=== PATIENT | female | born 1965 | race American Indian/Alaskan Native ===

== ENCOUNTER 2017-09-26 17:21 | Emergency (ER) | payer OTHER ==
--- NOTE | 2017-09-27 04:08 | Emergency Department Report ---
ED General Adult HPI - General Chief complaint: Skin Rash Stated complaint: RASH Time Seen by Provider: 09/27/17 02:49 Source: patient Mode of arrival: Ambulatory Limitations: No Limitations - History of Present Illness Initial comments: Patient is a 52-year-old femalePast medical history who presents with right eye pain and rash. Patient states her right eye pains going on for last 2 days she noticed some discharge coming from her eye she has no blurry vision but she has redness coming from her eye. Patient also has a rash on the left side of her neck gets itchy nothing makes it worse scratching makes the itching better. She states that she recently has been wearing some new clothes however she states that she's never had prior psych this before. Patient has no nausea no vomiting no fever no chills no chest pain no shortness of breath. - Related Data Previous Rx's Medication Instructions Recorded Last Taken Type Erythromycin [Erythromycin Ophth 10 applic OP Q4H #1 tube 09/27/17 Unknown Rx Oint] hydrOXYzine HCL [Atarax] 25 mg PO Q6HR PRN #30 tablet 09/27/17 Unknown Rx Allergies Allergy/AdvReac Type Severity Reaction Status Date / Time No Known Allergies Allergy Unverified 09/26/17 17:27 ED Review of Systems ROS: Stated complaint: RASH Other details as noted in HPI Constitutional: denies: chills, fever Eyes: eye pain. denies: eye discharge, vision change ENT: denies: ear pain, throat pain Respiratory: denies: cough, shortness of breath, wheezing Cardiovascular: denies: chest pain, palpitations Endocrine: no symptoms reported Gastrointestinal: denies: abdominal pain, nausea, diarrhea Genitourinary: denies: urgency, dysuria, discharge Musculoskeletal: denies: back pain, joint swelling, arthralgia Skin: rash. denies: lesions Neurological: denies: headache, weakness, paresthesias Psychiatric: denies: anxiety, depression Hematological/Lymphatic: denies: easy bleeding, easy bruising ED Past Medical Hx - Past Medical History Previous Medical History?: No - Surgical History Past Surgical History?: No - Social History Smoking Status: Never Smoker Substance Use Type: None - Medications Home Medications: Home Medications Medication Instructions Recorded Confirmed Last Taken Type Erythromycin [Erythromycin Ophth 10 applic OP Q4H #1 tube 09/27/17 Unknown Rx Oint] hydrOXYzine HCL [Atarax] 25 mg PO Q6HR PRN #30 tablet 09/27/17 Unknown Rx ED Physical Exam - General Limitations: No Limitations General appearance: alert, in no apparent distress - Head Head exam: Present: atraumatic, normocephalic - Eye Eye exam: Present: conjunctival injection (right eye and discharge ) - ENT ENT exam: Present: mucous membranes moist - Neck Neck exam: Present: normal inspection - Respiratory Respiratory exam: Present: normal lung sounds bilaterally. Absent: respiratory distress - Cardiovascular Cardiovascular Exam: Present: regular rate, normal rhythm. Absent: systolic murmur, diastolic murmur, rubs, gallop - GI/Abdominal GI/Abdominal exam: Present: soft, normal bowel sounds - Extremities Exam Extremities exam: Present: normal inspection - Back Exam Back exam: Present: normal inspection - Neurological Exam Neurological exam: Present: alert, oriented X3 - Psychiatric Psychiatric exam: Present: normal affect, normal mood - Skin Skin exam: Present: warm, dry, intact, normal color, rash (rash on left neck erythematous with excoriations. ) ED Course Vital Signs 09/26/17 17:27 Temperature 99.4 F Pulse Rate 101 H Respiratory 20 Rate Blood Pressure 156/90 O2 Sat by Pulse 97 Oximetry ED Medical Decision Making - Medical Decision Making Cdx Conjuctivitis ddx: Alllergic conjuctivitis, Atopic dermatitis I will send patient home with erythromycin eye ointment and Atarax for itching on patient follow-up with a primary care physician to follow-up on this rash. Discussed outpatient patient agrees with plan. Additional verbal discharge instructions were given. Critical care attestation.: If time is entered above; I have spent that time in minutes in the direct care of this critically ill patient, excluding procedure time. ED Disposition Clinical Impression: Conjunctivitis Qualifiers: Conjunctivitis type: acute Acute conjunctivitis type: bacterial Laterality: right Qualified Code(s): H10.31 - Unspecified acute conjunctivitis, right eye Atopic dermatitis Qualifiers: Atopic dermatitis type: unspecified Qualified Code(s): L20.9 - Atopic dermatitis, unspecified Disposition: DC-01 TO HOME OR SELFCARE Is pt being admited?: No Does the pt Need Aspirin: No Condition: Stable Instructions: Conjunctivitis (ED), Acute Rash (ED) Prescriptions: Erythromycin [Erythromycin Ophth Oint] 10 applic OP Q4H #1 tube hydrOXYzine HCL [Atarax] 25 mg PO Q6HR PRN #30 tablet PRN Reason: Itching Referrals: GABBY PERSAUD MD [Primary Care Provider] - 3-5 Days Forms: Work/School Release Form(ED)
[2017-09-27 04:30] VITALS: BP 109/70
== END 2017-09-27 04:31 | disposition home or self-care (01) ==
LOC: ED 17:21
DX: H10.31 Unspecified acute conjunctivitis, right eye (principal); L20.9 Atopic dermatitis, unspecified
CPT/HCPCS: 99282

== ENCOUNTER 2017-11-06 13:41 | Inpatient (IN) | payer OTHER ==
[2017-11-06] MEDS ORDERED: NACL 0.9% 1000 ML 1,000 ML IV ONE (18:22)
--- NOTE | 2017-11-06 18:26 | Emergency Department Report ---
Chief Complaint: Allergic Reaction Stated Complaint: LOWER EXTREMITIES PAIN Time Seen by Provider: 11/06/17 18:12 - HPI History of Present Illness: The patient is a 52-year-old female presents for evaluation of a diffuse rash to the entirety of the body for the past 3-4 weeks. She states that the rash started on her neck and upper body and slowly spread throughout the lower body and extremities. For the past week the rash has exhibited increased redness and peeling of dry patches of skin. She is also experiencing severe itching and pain throughout. She denies recent antibiotic use. She admits that she does not regularly receive annual checkups and is unsure if she might have diabetes. - Exam Vital Signs: Vital Signs 11/06/17 16:15 Temperature 97.3 F L Pulse Rate 100 H Respiratory 16 Rate Blood Pressure 112/59 O2 Sat by Pulse 100 Oximetry MSE screening note: Focused history and physical exam performed. Due to findings the following was ordered: Labs are ordered to investigate systemic infection versus auti-inflammatory disease process. ED Disposition for MSE Condition: Stable Referrals: PRIMARY CARE, [Primary Care Provider] - 3-5 Days
[2017-11-06 18:49] LABS: Hematocrit 41.6 % (30.3-42.9); Hemoglobin 13.6 gm/dl (10.1-14.3); Mean Corpuscular HGB Conc 33 % (30-34); Mean Corpuscular Hemoglobin 28 pg (28-32); Mean Corpuscular Volume 85 fl (79-97); Platelet Count 303 K/mm3 (140-440); Red Blood Count 4.88 M/mm3 (3.65-5.03)
[2017-11-06 19:14] LABS: Alanine Aminotransferase 51 units/L (7-56); Albumin 3.1 g/dL (3.9-5); BUN/Creatinine Ratio 20; Blood Urea Nitrogen 14 mg/dL (7-17); Calcium 8.3 mg/dL (8.4-10.2); Hemolysis Index 10
[2017-11-06 19:31] LABS: Basophils % (Manual) 0 % (0.0-1.8); Eosinophils % (Manual) 0 % (0.0-4.3); Total Cells Counted 100
[2017-11-06 19:32] LABS: Anisocytosis 1+; Poikilocytosis Few
[2017-11-06 19:34] LABS: Erythrocyte Sedimentation Rate 11 mm/Hr (0-20)
[2017-11-07] MEDS ORDERED: NACL 0.9% 1000 ML 1,000 ML IV ONE (01:02)
--- NOTE | 2017-11-07 01:02 | Emergency Department Report ---
ED General Adult HPI - General Chief complaint: Allergic Reaction Stated complaint: LOWER EXTREMITIES PAIN Time Seen by Provider: 11/06/17 18:12 Source: patient Mode of arrival: Wheelchair Limitations: No Limitations - History of Present Illness Initial comments: This is a 52-year-old female who denies having any significant past medical history who comes to the emergency room with a 3 to four-week history of a worsening rash. She states that she was diagnosed as having an allergic reaction and was put on hydroxyzine but this did not help. The rash has literally spread from her head down to her toes. She has excoriations as well. She admits to itching and was told that she may have psoriasis. She denies being a diabetic even though that her blood sugar is elevated today she also has not been on any types of steroids. -: Gradual Location: head, face, neck, chest, back, abdomen, buttocks, left, right, upper extremity, lower extremity Quality: other Improves with: none Worsens with: none Associated Symptoms: denies other symptoms (itching) Treatments Prior to Arrival: other (hydroxyzine) - Related Data Previous Rx's Medication Instructions Recorded Last Taken Type Erythromycin [Erythromycin Ophth 10 applic OP Q4H #1 tube 09/27/17 Unknown Rx Oint] hydrOXYzine HCL [Atarax] 25 mg PO Q6HR PRN #30 tablet 09/27/17 Unknown Rx Allergies Allergy/AdvReac Type Severity Reaction Status Date / Time No Known Allergies Allergy Unverified 09/26/17 17:27 ED Review of Systems ROS: Stated complaint: LOWER EXTREMITIES PAIN Other details as noted in HPI Comment: All other systems reviewed and negative Constitutional: no symptoms reported, see HPI Eyes: as per HPI ENT: as per HPI Respiratory: see HPI Cardiovascular: as per HPI Endocrine: see HPI Gastrointestinal: as per HPI Genitourinary: as per HPI Musculoskeletal: as per HPI Skin: as per HPI Neurological: as per HPI Psychiatric: as per HPI Hematological/Lymphatic: as per HPI ED Past Medical Hx - Past Medical History Previous Medical History?: Yes Additional medical history: psoriasis - Surgical History Past Surgical History?: No - Social History Smoking Status: Never Smoker Substance Use Type: None - Medications Home Medications: Home Medications Medication Instructions Recorded Confirmed Last Taken Type Erythromycin [Erythromycin Ophth 10 applic OP Q4H #1 tube 09/27/17 Unknown Rx Oint] hydrOXYzine HCL [Atarax] 25 mg PO Q6HR PRN #30 tablet 09/27/17 Unknown Rx ED Physical Exam - General Limitations: No Limitations General appearance: alert, in no apparent distress - Head Head exam: Present: atraumatic - Eye Eye exam: Present: normal appearance, PERRL - ENT ENT exam: Present: normal exam, normal orophraynx - Neck Neck exam: Present: normal inspection - Respiratory Respiratory exam: Present: normal lung sounds bilaterally. Absent: respiratory distress, wheezes, rales, rhonchi - Cardiovascular Cardiovascular Exam: Present: regular rate, normal rhythm, normal heart sounds - GI/Abdominal GI/Abdominal exam: Present: soft, normal bowel sounds - Rectal Rectal exam: Present: deferred - Extremities Exam Extremities exam: Present: pedal edema - Back Exam Back exam: Present: normal inspection - Neurological Exam Neurological exam: Present: alert, oriented X3, CN II-XII intact - Psychiatric Psychiatric exam: Present: normal affect, normal mood - Skin Skin exam: Present: erythema (generalized), other (dried scaling appearance seems to be psoriatic in nature and there could be a superimposed cellulitis in the lower extremities.) ED Course Vital Signs 11/06/17 11/07/17 11/07/17 16:15 00:08 00:14 Temperature 97.3 F L Pulse Rate 100 H Respiratory 16 16 Rate Blood Pressure 112/59 O2 Sat by Pulse 100 99 99 Oximetry - Reevaluation(s) Reevaluation #1: 11/07/17 01:01 Patient's white count is elevated to 20,000. Her ESR is normal. The patient does not have a primary care doctor. Of concern also is that her blood sugar is over 300. She denies being a diabetic. I suspect some type of autoimmune disease and the patient will likely need to be admitted for further evaluation. I will go ahead and give the patient IV fluids and Benadryl. 11/07/17 01:08 I discussed the case with the hospitalist. We will go ahead and admit the patient. ED Medical Decision Making - Lab Data Result diagrams: 11/06/17 18:28 11/06/17 18:28 Critical care attestation.: If time is entered above; I have spent that time in minutes in the direct care of this critically ill patient, excluding procedure time. ED Disposition Clinical Impression: Psoriasiform eruption Diabetes mellitus Qualifiers: Diabetes mellitus type: drug or chemical induced Diabetes mellitus complication status: with other specified complication Diabetes mellitus technician terminal and repeater insulin use: without prison use Qualified Code(s): E09.69 - Drug or chemical induced diabetes mellitus with other specified complication Leukocytosis Qualifiers: Leukocytosis type: other Qualified Code(s): D72.828 - Other elevated white blood cell count Disposition: OP ADMIT IP TO THIS HOSP Is pt being admited?: Yes Does the pt Need Aspirin: No Condition: Stable Instructions: Diabetes Mellitus Type 2 in Adults (ED) Referrals: PRIMARY CARE, [Primary Care Provider] - 3-5 Days
[2017-11-07] MEDS ORDERED: BENADRYL IV ONE (01:03)
[2017-11-07] MEDS ORDERED: PERCOCET 5/325 PO PRN (03:35)
[2017-11-07] MEDS ORDERED: ZOFRAN IV PRN (03:35)
[2017-11-07] MEDS ORDERED: D50W (25GM) Syringe IV PRN (03:35)
[2017-11-07] MEDS ORDERED: DULCOLAX PR PRN (03:35)
[2017-11-07] MEDS ORDERED: MILK OF MAGNESIA PO PRN (03:35)
[2017-11-07] MEDS ORDERED: cefTRIAXone 1 GM in NACL 0.9% 20 ML IV SCH (03:45)
--- NOTE | 2017-11-07 03:58 | XRay Report ---
FINAL REPORT EXAM: XR CHEST 1V AP HISTORY: fever COMPARISON: None available. FINDINGS: Frontal view(s) of the chest obtained. Cardiac silhouette within normal limits. No gross consolidation or effusion. No pneumothorax. IMPRESSION: No grossly acute findings.
[2017-11-07] MEDS: cefTRIAXone 1 GM in NACL 0.9% 20 ML IV SCH (04:12)
--- NOTE | 2017-11-07 04:23 | History and Physical Report ---
History of Present Illness Date of examination: 11/07/17 Date of admission: 11/07/17 03:35 History of present illness: 52-year-old woman who was recently diagnosed with psoriasis comes to emergency room with complaints of polyuria, polydipsia and weight loss and cramps in her leg. She was recently started on 2 medications for her psoriasis one of which is in ointment, she cannot read hold the name of the pill Review Of Systems: Constitutional: no weight loss Ears, eyes, nose, mouth and throat: no nasal congestion, no nasal discharge, no sinus pressure, blurry vision, diplopia Neck: No neck pain or rigidity. Cardiovascular: No chest pain, palpitations Respiratory: No shortness of breath, cough Gastrointestinal: No abdominal pain, hematochezia Genitourinary : no dysuria, frequency , hematuria Musculoskeletal: no muscle ache Integumentary: no rash, no pruritis Neurological: no parathesias, focal weakness Endocrine: no cold or heat intolerance, + polyuria or polydipsia Hematologic/Lymphatic: no easy bruising, no easy bleeding, no gland swelling Allergic/Immunologic: no urticaria, no angioedema. PAST MEDICAL HISTORY:psoriasis PAST SURGICAL HISTORY: None FAMILY HISTORY: Hypertension SOCIAL HISTORY: Denies alcohol, tobacco, drugs Medications and Allergies Allergies Allergy/AdvReac Type Severity Reaction Status Date / Time No Known Allergies Allergy Verified 11/07/17 03:50 Home Medications Medication Instructions Recorded Confirmed Last Taken Type Erythromycin [Erythromycin Ophth 10 applic OP Q4H #1 tube 09/27/17 Unknown Rx Oint] hydrOXYzine HCL [Atarax] 25 mg PO Q6HR PRN #30 tablet 09/27/17 Unknown Rx Active Meds: Active Medications Acetaminophen (Tylenol) 650 mg PO Q4H PRN PRN Reason: Pain MILD(1-3)/Fever >100.5/VIDES Bisacodyl (Dulcolax) 10 mg RI QDAY PRN PRN Reason: Constipation unrelieved by MOM Dextrose (D50w (25gm) Syringe) 50 ml IV PRN PRN PRN Reason: Hypoglycemia Enoxaparin Sodium (Lovenox) 40 mg SUB-Q QDAY@1000 MUNIR Sodium Chloride (Nacl 0.9% 1000 Ml) 1,000 mls @ 75 mls/hr IV DIRECT MUNIR Ceftriaxone Sodium 1 gm/ (Sodium Chloride) 20 mls @ 20 mls/10 min IV Q24H MUNIR Insulin Aspart (Novolog) 0 units SUB-Q ACHS MUNIR PRN Reason: Protocol Magnesium Hydroxide (Milk Of Magnesia) 30 ml PO Q4H PRN PRN Reason: Constipation Ondansetron HCl (Zofran) 4 mg IV Q8H PRN PRN Reason: N/V unrelieved by Reglan Oxycodone/Acetaminophen (Percocet 5/325) 1 tab PO Q6H PRN PRN Reason: Pain, Moderate (4-6) Exam - Physical Exam Narrative exam: Gen. appearance: Patient lying in bed in no acute distress HEENT: Normocephalic/atraumatic, pupils equal round reactive to light, extra occular movement intact, no scleral icterus, no JVD or thyromegaly or nodule, neck is supple, mucous membrane moist, no erythema or exudate Heart: S1-S2, regular rate and rhythm Lungs: Clear to auscultation bilateral breathing comfortable Abdomen: Positive bowel sounds, nontender, nondistended, no organomegaly Extremities: No edema, cyanosis, clubbing Neuro:: Oriented 3 , cranial nerves II-12 intact, speech, motor intact Skin: Diffuse erythematous rash with white scales from face down to her feet , No nodules, warm dry - Constitutional Vitals: Temp Pulse Resp BP Pulse Ox 97.3 F L 100 H 16 117/62 100 11/06/17 16:15 11/06/17 16:15 11/07/17 00:14 11/07/17 04:00 11/07/17 04:00 Results - Labs CBC & Chem 7: 11/06/17 18:28 11/06/17 18:28 Labs: Abnormal lab results 11/06/17 11/06/17 11/07/17 Range/Units 18:28 18:28 Unknown WBC 20.8 H (4.5-11.0) K/mm3 Seg Neuts % (Manual) 96.0 H (40.0-70.0) % Lymphocytes % (Manual) 1.0 L (13.4-35.0) % Seg Neutrophils # Man 20.0 H (1.8-7.7) K/mm3 Lymphocytes # (Manual) 0.2 L (1.2-5.4) K/mm3 Chloride 97.6 L (98-107) mmol/L Glucose 352 H (65-100) mg/dL Hemoglobin A1c 8.5 H (4-6) % Calcium 8.3 L (8.4-10.2) mg/dL Alkaline Phosphatase 239 H (35-129) units/L Total Protein 6.1 L (6.3-8.2) g/dL Albumin 3.1 L (3.9-5) g/dL Assessment and Plan Assessment SIRS New-onset diabetes Psoriasis Plan Admit to medicine Check fingersticks, hemoglobin A1c and initiate insulin sliding scale Start IV fluid, metformin Start IV Rocephin, check chest x-ray, urinalysis Follow cultures DVT prophylaxis
[2017-11-07] MEDS: NACL 0.9% 1000 ML 1,000 ML IV SCH (06:43)
[2017-11-07] MEDS: NOVOLOG SUB-Q SCH ×4 (07:30→23:25)
[2017-11-07] MEDS: ERYTHROMYCIN OPHTH OINT OP SCH ×5 (09:26→23:02)
[2017-11-07] MEDS: LOVENOX SUB-Q SCH (09:27)
[2017-11-07] MEDS: GLUCOPHAGE PO SCH (09:27)
[2017-11-07] MEDS: ATARAX PO PRN ×2 (09:40→23:02)
[2017-11-07] MEDS ORDERED: LOVENOX SUB-Q SCH (10:00)
--- NOTE | 2017-11-07 11:32 | Progress Note ---
Assessment and Plan Assessment and plan: Patient is a 52-year-old woman who was recently diagnosed with psoriasis by Dr. Migdalia Pyle, continuity director, who presents with bilateral leg cramps. She was found to have a blood sugar of 352 with an A1c of 8.5 and white blood cell count of 20.8. pCXR reported as no acute findings UA still pending Only one set of blood cultures taken -Leg cramps/pains possibly related to new onset diabetes mellitus: Start insulin to treat diabetes -New onset type 2 diabetes mellitus, A1c 8.5: Start metformin, ADA diet, SSI -SIRS tachycardia and leukocytosis, without definitive source of infection but with suspected UTI with sepsis, UA not collected: already started IV rocephin for suspected uti with sepsis, poa -Mild malnutrition, poa: consult Player Development Manager -Elevated Alkaline phosphate: maybe related to the above, repeat -Morbid obesity, bmi 41.4: consult Player Development Manager, lifestyle modification -Psoriasis: I have asked the patient to obtain new medications started recently , she will give to RN -DVT/GI prophylaxis reviewed History Interval history: Patient was seen and examined. Follow-up on current diagnosis of bilateral leg cramps which are improved. Overnight uneventful. Patient denies any chest pain , shortness breath, nausea/vomiting or severe headaches. Imaging, nursing note , chart, labs and old chart reviewed. Discussed with patient. Hospitalist Physical - Physical exam Narrative exam: GEN: WDWN, NAD, AWAKE, ALERT, ORIENTATED 3, morbidly obese BMI 41.4 HEENT: NCAT, EOMI, PERRL, OP Clear NECK: supple, no adenopathy, no thyromegaly, no JVD CVS/HEART: RRR, NORMAL S1S2, pulses present bilaterally CHEST/LUNGS: CTA B, Symmetrical chest expansion, good air entry bilaterally GI/Abdomen: soft, NTND, good bowel sounds, no guarding or rebound /Bladder: no suprapubic tenderness, no CVA or paraspinal tenderness EXT/Skin: no c/c/e, obvious diffuse rash, dry scales/plaques from her scalp to her legs MSK: FROM x 4 Neuro: CN 2-12 grossly intact, no new focal deficits Psych: calm - Constitutional Vitals: Temp Pulse Resp BP Pulse Ox 98.8 F 95 H 20 110/48 100 11/07/17 07:20 11/07/17 07:20 11/07/17 07:20 11/07/17 07:20 11/07/17 07:20 Results - Labs CBC & Chem 7: 11/06/17 18:28 11/06/17 18:28 Labs: Laboratory Last Values WBC 20.8 K/mm3 (4.5-11.0) H 11/06/17 18:28 RBC 4.88 M/mm3 (3.65-5.03) 11/06/17 18: Hgb 13.6 gm/dl (10.1-14.3) 11/06/17 18:28 Hct 41.6 % (30.3-42.9) 11/06/17 18: MCV 85 fl (79-97) 11/06/17 18: MCH 28 pg (28-32) 11/06/17 18:28 MCHC 33 % (30-34) 11/06/17 18:28 RDW 14.0 % (13.2-15.2) 11/06/17 18: Plt Count 303 K/mm3 (140-440) 11/06/17 18:28 Add Manual Diff Complete 11/06/17 18:28 Total Counted 100 11/06/17 18: Seg Neuts % (Manual) 96.0 % (40.0-70.0) H 11/06/17 18:28 Band Neutrophils % 0 % 11/06/17 18:28 Lymphocytes % (Manual) 1.0 % (13.4-35.0) L 11/06/17 18:28 Reactive Lymphs % (Man) 0 % 11/06/17 18:28 Monocytes % (Manual) 3.0 % (0.0-7.3) 11/06/17 18:28 Eosinophils % (Manual) 0 % (0.0-4.3) 11/06/17 18:28 Basophils % (Manual) 0 % (0.0-1.8) 11/06/17 18:28 Metamyelocytes % 0 % 11/06/17 18:28 Myelocytes % 0 % 11/06/17 18:28 Promyelocytes % 0 % 11/06/17 18:28 Blast Cells % 0 % 11/06/17 18:28 Nucleated RBC % Not Reportable 02/05/18 18:28 Seg Neutrophils # Man 20.0 K/mm3 (1.8-7.7) H 11/06/17 18:28 Band Neutrophils # 0.0 K/mm3 11/06/17 18:28 Lymphocytes # (Manual) 0.2 K/mm3 (1.2-5.4) L 11/06/17 18:28 Abs React Lymphs (Man) 0.0 K/mm3 11/06/17 18:28 Monocytes # (Manual) 0.6 K/mm3 (0.0-0.8) 11/06/17 18:28 Eosinophils # (Manual) 0.0 K/mm3 (0.0-0.4) 11/06/17 18:28 Basophils # (Manual) 0.0 K/mm3 (0.0-0.1) 11/06/17 18:28 Metamyelocytes # 0.0 K/mm3 11/06/17 18:28 Myelocytes # 0.0 K/mm3 11/06/17 18:28 Promyelocytes # 0.0 K/mm3 11/06/17 18:28 Blast Cells # 0.0 K/mm3 11/06/17 18:28 WBC Morphology Not Reportable 11/06/17 18:28 Hypersegmented Neuts Not Reportable 11/06/17 18:28 Hyposegmented Neuts Not Reportable 11/06/17 18:28 Hypogranular Neuts Not Reportable 11/06/17 18:28 Smudge Cells Not Reportable 11/06/17 18:28 Toxic Granulation Not Reportable 11/06/17 18:28 Toxic Vacuolation Not Reportable 11/06/17 18:28 Dohle Bodies Not Reportable 11/06/17 18:28 Pelger-Huet Anomaly Not Reportable 11/06/17 18:28 Nu Rods Not Reportable 11/06/17 18:28 Platelet Estimate Appears normal 11/06/17 18:28 Clumped Platelets Not Reportable 11/06/17 18:28 Plt Clumps, EDTA Not Reportable 11/06/17 18:28 Large Platelets Not Reportable 11/06/17 18:28 Giant Platelets Not Reportable 11/06/17 18:28 Platelet Satelliting Not Reportable 11/06/17 18:28 Plt Morphology Comment Not Reportable 11/06/17 18:28 RBC Morphology Not Reportable 11/06/17 18:28 Dimorphic RBCs Not Reportable 11/06/17 18:28 Polychromasia Not Reportable 11/06/17 18:28 Hypochromasia Not Reportable 11/06/17 18:28 Poikilocytosis Few 11/06/17 18:28 Anisocytosis 1+ 11/06/17 18:28 Microcytosis Not Reportable 11/06/17 18:28 Macrocytosis Not Reportable 11/06/17 18:28 Spherocytes Not Reportable 11/06/17 18:28 Pappenheimer Bodies Not Reportable 11/06/17 18:28 Sickle Cells Not Reportable 11/06/17 18:28 Target Cells Not Reportable 11/06/17 18:28 Tear Drop Cells Not Reportable 11/06/17 18:28 Ovalocytes Not Reportable 11/06/17 18:28 Helmet Cells Not Reportable 11/06/17 18:28 [place] Bodies Not Reportable 11/06/17 18:28 [place] Rings Not Reportable 11/06/17 18:28 Janny Cells Not Reportable 11/06/17 18:28 Bite Cells Not Reportable 11/06/17 18:28 Crenated Cell Not Reportable 11/06/17 18:28 Elliptocytes Not Reportable 11/06/17 18:28 Acanthocytes (Spur) Not Reportable 11/06/17 18:28 Rouleaux Not Reportable 11/06/17 18:28 Hemoglobin C Crystals Not Reportable 11/06/17 18:28 Schistocytes Not Reportable 11/06/17 18:28 Malaria parasites Not Reportable 11/06/17 18:28 ESR 11 mm/Hr (0-20) 11/06/17 18:28 [place] Bodies Not Reportable 11/06/17 18:28 Hem Pathologist Commnt No 11/06/17 18:28 Sodium 137 mmol/L (137-145) 11/06/17 18:28 Potassium 4.3 mmol/L (3.6-5.0) 11/06/17 18:28 Chloride 97.6 mmol/L (98-107) L 11/06/17 18:28 Carbon Dioxide 22 mmol/L (22-30) 11/06/17 18:28 Anion Gap 22 mmol/L 11/06/17 18:28 BUN 14 mg/dL (7-17) 11/06/17 18: Creatinine 0.7 mg/dL (0.7-1.2) 11/06/17 18: Estimated GFR > 60 ml/min 11/06/17 18: BUN/Creatinine Ratio 20 % 11/06/17 18: Glucose 352 mg/dL (65-100) H 11/06/17 18: Hemoglobin A1c 8.5 % (4-6) H 11/07/17 Unknown Calcium 8.3 mg/dL (8.4-10.2) L 11/06/17: Total Bilirubin 0.80 mg/dL (0.1-1.2) 11/06/17: AST 35 units/L (5-40) 11/06/17: ALT 51 units/L (7-56) 11/06/17: Alkaline Phosphatase 239 units/L (35-129) H 11/06/17: Total Creatine Kinase 46 units/L (30-135) 11/06/17: Total Protein 6.1 g/dL (6.3-8.2) L 11/06/17: Albumin 3.1 g/dL (3.9-5) L 11/06/17: Albumin/Globulin Ratio 1.0 % 11/06/17: HCG, Qual Negative (Negative) 11/06/17
[2017-11-07] MEDS: TYLENOL PO PRN (18:31)
[2017-11-08] MEDS: NACL 0.9% 1000 ML 1,000 ML IV SCH (01:02)
[2017-11-08] MEDS: ERYTHROMYCIN OPHTH OINT OP SCH ×4 (05:09→14:00)
[2017-11-08] MEDS: cefTRIAXone 1 GM in NACL 0.9% 20 ML IV SCH (06:19)
[2017-11-08 08:13] LABS: Basophils # (Auto) 0.1 K/mm3 (0.0-0.1); Eosinophils # (Auto) 0.4 K/mm3 (0.0-0.4); Eosinophils % (Auto) 3.6 % (0.0-4.3); Hematocrit 35.8 % (30.3-42.9); Hemoglobin 11.9 gm/dl (10.1-14.3); Lymphocytes # (Auto) 1.5 K/mm3 (1.2-5.4); Lymphocytes % (Auto) 15.6 % (13.4-35.0); Mean Corpuscular HGB Conc 33 % (30-34); Mean Corpuscular Hemoglobin 28 pg (28-32); Mean Corpuscular Volume 86 fl (79-97); Monocytes # (Auto) 0.8 K/mm3 (0.0-0.8); Monocytes % (Auto) 7.7 % (0.0-7.3); Platelet Count 285 K/mm3 (140-440); Red Blood Count 4.19 M/mm3 (3.65-5.03); Red Cell Distribution Width 13.8 % (13.2-15.2)
[2017-11-08 08:37] LABS: BUN/Creatinine Ratio 22; Blood Urea Nitrogen 11 mg/dL (7-17); Calcium 7.4 mg/dL (8.4-10.2); Hemolysis Index 14
[2017-11-08] MEDS: LOVENOX SUB-Q SCH (09:13)
[2017-11-08] MEDS: GLUCOPHAGE PO SCH (09:13)
[2017-11-08] MEDS: NOVOLOG SUB-Q SCH ×4 (09:14→23:13)
--- NOTE | 2017-11-08 14:18 | Progress Note ---
Assessment and Plan Assessment and plan: Patient is a 52-year-old woman who was recently diagnosed with psoriasis by Dr. Migdalia Pyle, mattress inspector, who presents with bilateral leg cramps. She was found to have a blood sugar of 352 with an A1c of 8.5 and white blood cell count of 20.8. pCXR reported as no acute findings UA not collected Blood culture negative so far -Leg cramps/pains possibly related to new onset diabetes mellitus: Start insulin to treat diabetes -New onset type 2 diabetes mellitus, A1c 8.5: Start metformin, ADA diet, SSI -SIRS tachycardia and leukocytosis, without definitive source of infection but with suspected UTI with sepsis, UA not collected: already started IV rocephin for suspected uti with sepsis, poa -Mild malnutrition, poa: consult Straight Edger -Elevated Alkaline phosphate: maybe related to the above, repeat -Morbid obesity, bmi 41.4: consult Straight Edger, lifestyle modification -Psoriasis: I have asked the patient to obtain new medications started recently , she will give to RN -DVT/GI prophylaxis reviewed 11/08/17: New red rash, ?drug reaction, ?if she had this prior to admission, I asked for pharmacy number but she is unable to get it [facility] in ?[place], [place] and [place] on [address] I stopped all of her medications and started iv steroids/benadryl and continue SSI. No Post Tensioning Ironworker Helper is available. Change iv rocephin to Levaquin. Severe plaque psoriasis: I called her Post Tensioning Ironworker Helper, Dr. Elo Pyle @ and they will fax over her records. ?allergies to Metformin, it was the only medication that I added on 11/07/17. Anticipate d/c tomorrow. History Interval history: Patient was seen and examined. Follow-up on current diagnosis of bilateral leg cramps which are improved. Overnight uneventful. Patient denies any chest pain , shortness breath, nausea/vomiting or severe headaches. Imaging, nursing note , chart, labs and old chart reviewed. Discussed with patient. New issue is that she has diffuse rash all over. Hospitalist Physical - Physical exam Narrative exam: GEN: WDWN, NAD, AWAKE, ALERT, ORIENTATED 3, morbidly obese BMI 41.4 HEENT: NCAT, EOMI, PERRL, OP Clear NECK: supple, no adenopathy, no thyromegaly, no JVD CVS/HEART: RRR, NORMAL S1S2, pulses present bilaterally CHEST/LUNGS: CTA B, Symmetrical chest expansion, good air entry bilaterally GI/Abdomen: soft, NTND, good bowel sounds, no guarding or rebound /Bladder: no suprapubic tenderness, no CVA or paraspinal tenderness EXT/Skin: no c/c/e, obvious diffuse rash, dry scales/plaques from her scalp to her legs, maculopapular diffuse erythematous rash all over. MSK: FROM x 4 Neuro: CN 2-12 grossly intact, no new focal deficits Psych: calm - Constitutional Vitals: Temp Pulse Resp BP Pulse Ox 98.4 F 105 H 20 110/53 94 11/08/17 11:48 11/08/17 11:48 11/08/17 11:48 11/08/17 11:48 11/08/17 12:29 Results - Labs CBC & Chem 7: 11/08/17 07:19 11/08/17 07:19 Labs: Laboratory Last Values WBC 9.9 K/mm3 (4.5-11.0) 11/08/17 07:19 RBC 4.19 M/mm3 (3.65-5.03) 11/08/17 07:19 Hgb 11.9 gm/dl (10.1-14.3) 11/08/17 07:19 Hct 35.8 % (30.3-42.9) 11/08/17 07:19 MCV 86 fl (79-97) 11/08/17 07:19 MCH 28 pg (28-32) 11/08/17 07:19 MCHC 33 % (30-34) 11/08/17 07:19 RDW 13.8 % (13.2-15.2) 11/08/17 07:19 Plt Count 285 K/mm3 (140-440) 11/08/17 07:19 Lymph % (Auto) 15.6 % (13.4-35.0) 11/08/17 07:19 [place] % (Auto) 7.7 % (0.0-7.3) H 11/08/17 07:19 Eos % (Auto) 3.6 % (0.0-4.3) 11/08/17 07:19 Baso % (Auto) 1.0 % (0.0-1.8) 11/08/17 07:19 Lymph # 1.5 K/mm3 (1.2-5.4) 11/08/17 07:19 [place] # 0.8 K/mm3 (0.0-0.8) 11/08/17 07:19 Eos # 0.4 K/mm3 (0.0-0.4) 11/08/17 07:19 Baso # 0.1 K/mm3 (0.0-0.1) 11/08/17 07:19 Add Manual Diff Complete 11/06/17 18:28 Total Counted 100 11/06/17 18:28 Seg Neutrophils % 72.1 % (40.0-70.0) H 11/08/17 07:19 Seg Neuts % (Manual) 96.0 % (40.0-70.0) H 11/06/17 18:28 Band Neutrophils % 0 % 11/06/17 18:28 Lymphocytes % (Manual) 1.0 % (13.4-35.0) L 11/06/17 18:28 Reactive Lymphs % (Man) 0 % 11/06/17 18:28 Monocytes % (Manual) 3.0 % (0.0-7.3) 11/06/17 18:28 Eosinophils % (Manual) 0 % (0.0-4.3) 11/06/17 18:28 Basophils % (Manual) 0 % (0.0-1.8) 11/06/17 18:28 Metamyelocytes % 0 % 11/06/17 18:28 Myelocytes % 0 % 11/06/17 18:28 Promyelocytes % 0 % 11/06/17 18:28 Blast Cells % 0 % 11/06/17 18:28 Nucleated RBC % Not Reportable 11/06/17 18:28 Seg Neutrophils # 7.2 K/mm3 (1.8-7.7) 11/08/17 07:19 Seg Neutrophils # Man 20.0 K/mm3 (1.8-7.7) H 11/06/17 18:28 Band Neutrophils # 0.0 K/mm3 11/06/17 18:28 Lymphocytes # (Manual) 0.2 K/mm3 (1.2-5.4) L 11/06/17 18:28 Abs React Lymphs (Man) 0.0 K/mm3 11/06/17 18:28 Monocytes # (Manual) 0.6 K/mm3 (0.0-0.8) 11/06/17 18:28 Eosinophils # (Manual) 0.0 K/mm3 (0.0-0.4) 11/06/17 18:28 Basophils # (Manual) 0.0 K/mm3 (0.0-0.1) 11/06/17 18:28 Metamyelocytes # 0.0 K/mm3 11/06/17 18:28 Myelocytes # 0.0 K/mm3 11/06/17 18:28 Promyelocytes # 0.0 K/mm3 11/06/17 18:28 Blast Cells # 0.0 K/mm3 11/06/17 18:28 WBC Morphology Not Reportable 11/06/17 18:28 Hypersegmented Neuts Not Reportable 11/06/17 18:28 Hyposegmented Neuts Not Reportable 11/06/17 18:28 Hypogranular Neuts Not Reportable 11/06/17 18:28 Smudge Cells Not Reportable 11/06/17 18:28 Toxic Granulation Not Reportable 11/06/17 18:28 Toxic Vacuolation Not Reportable 11/06/17 18:28 Dohle Bodies Not Reportable 11/06/17 18:28 Pelger-Huet Anomaly Not Reportable 11/06/17 18:28 Nu Rods Not Reportable 11/06/17 18:28 Platelet Estimate Appears normal 11/06/17 18:28 Clumped Platelets Not Reportable 11/06/17 18:28 Plt Clumps, EDTA Not Reportable 11/06/17 18:28 Large Platelets Not Reportable 11/06/17 18:28 Giant Platelets Not Reportable 11/06/17 18:28 Platelet Satelliting Not Reportable 11/06/17 18:28 Plt Morphology Comment Not Reportable 11/06/17 18:28 RBC Morphology Not Reportable 11/06/17 18:28 Dimorphic RBCs Not Reportable 11/06/17 18:28 Polychromasia Not Reportable 11/06/17 18:28 Hypochromasia Not Reportable 11/06/17 18:28 Poikilocytosis Few 11/06/17 18:28 Anisocytosis 1+ 11/06/17 18:28 Microcytosis Not Reportable 11/06/17 18:28 Macrocytosis Not Reportable 11/06/17 18:28 Spherocytes Not Reportable 11/06/17 18:28 Pappenheimer Bodies Not Reportable 11/06/17 18:28 Sickle Cells Not Reportable 11/06/17 18:28 Target Cells Not Reportable 11/06/17 18:28 Tear Drop Cells Not Reportable 11/06/17 18:28 Ovalocytes Not Reportable 11/06/17 18:28 Helmet Cells Not Reportable 11/06/17 18:28 Lai-[place] Bodies Not Reportable 11/06/17 18:28 [place] Rings Not Reportable 11/06/17 18:28 [place] Cells Not Reportable 11/06/17 18:28 Bite Cells Not Reportable 11/06/17 18:28 Crenated Cell Not Reportable 11/06/17 18:28 Elliptocytes Not Reportable 11/06/17 18:28 Acanthocytes (Spur) Not Reportable 11/06/17 18:28 Rouleaux Not Reportable 11/06/17 18:28 Hemoglobin C Crystals Not Reportable 11/06/17 18:28 Schistocytes Not Reportable 11/06/17 18:28 Malaria parasites Not Reportable 11/06/17 18:28 ESR 11 mm/Hr (0-20) 11/06/17 18:28 [place] Bodies Not Reportable 11/06/17 18:28 Hem Pathologist Commnt No 11/06/17 18:28 Sodium 144 mmol/L (137-145) D 11/08/17 07:19 Potassium 3.6 mmol/L (3.6-5.0) 11/08/17 07:19 Chloride 104.4 mmol/L (98-107) 11/08/17 07:19 Carbon Dioxide 23 mmol/L (22-30) 11/08/17 07:19 Anion Gap 20 mmol/L 11/08/17 07:19 BUN 11 mg/dL (7-17) 11/08/17 07:19 Creatinine 0.5 mg/dL (0.7-1.2) L 11/08/17 07:19 Estimated GFR > 60 ml/min 11/08/17 07:19 BUN/Creatinine Ratio 22 % 11/08/17 07:19 Glucose 161 mg/dL (65-100) H 11/08/17 07:19 POC Glucose 231 (70-105) H 11/08/17 11:46 Hemoglobin A1c 8.5 % (4-6) H 11/07/17 Unknown Calcium 7.4 mg/dL (8.4-10.2) L 11/08/17 07:19 Total Bilirubin 0.80 mg/dL (0.1-1.2) 11/06/17 18:28 AST 35 units/L (5-40) 11/06/17 18:28 ALT 51 units/L (7-56) 11/06/17 18:28 Alkaline Phosphatase 239 units/L (35-129) H 11/06/17 18:28 Total Creatine Kinase 46 units/L (30-135) 11/06/17 18:28 Total Protein 6.1 g/dL (6.3-8.2) L 11/06/17 18:28 Albumin 3.1 g/dL (3.9-5) L 11/06/17 18:28 Albumin/Globulin Ratio 1.0 % 11/06/17 18:28 HCG, Qual Negative (Negative) 11/06/17 18:28
[2017-11-08] MEDS: LEVAQUIN PO SCH (15:51)
[2017-11-08] MEDS: TYLENOL PO PRN (15:51)
[2017-11-08] MEDS ORDERED: BENADRYL PO PRN (19:04)
[2017-11-08] MEDS: DELTASONE PO SCH (20:36)
[2017-11-09 07:06] LABS: Mean Corpuscular HGB Conc 33 % (30-34); Mean Corpuscular Hemoglobin 28 pg (28-32); Mean Corpuscular Volume 85 fl (79-97); Platelet Count 282 K/mm3 (140-440); Red Blood Count 4.23 M/mm3 (3.65-5.03); Red Cell Distribution Width 13.7 % (13.2-15.2)
[2017-11-09 07:14] LABS: Bacteria,Urine 1+ /HPF (Negative); Bilirubin,Urine NEG (Negative); Blood,Urine NEG (Negative); Color,Urine Yellow (Yellow); Mucus,Urine FEW /HPF; Nitrite,Urine NEG (Negative); Protein,Urine <15 mg/dL mg/dL (Negative)
[2017-11-09 07:26] LABS: BUN/Creatinine Ratio 17; Blood Urea Nitrogen 10 mg/dL (7-17); Calcium 8.1 mg/dL (8.4-10.2); Hemolysis Index 5
[2017-11-09] MEDS: NOVOLOG SUB-Q SCH ×4 (07:30→23:57)
--- NOTE | 2017-11-09 08:41 | Progress Note ---
Assessment and Plan Psoriasis - recent diagnosis by Dr. Migdalia Pyle, hospital clerk @ [phone] - acute worsening potentially due to drug reaction - continue prednisone 60 mg PO qDay - continue phenhydramine 50 mg PO q6H Diabetes, new-diagnosis - HbA1c 8.5% - sliding scale insulin - Consistent carbohydrate diet SIRS - course improving - WBC trended from 20.8 (2/5) to 8.6 (2/8) - continue Levofloxacin 500mg PO q24H Subjective Date of service: 11/09/17 Principal diagnosis: SIRS, New-onset diabetes, Psoriasis Interval history: Patient was seen and examined today. She still complains of itchiness with generalized erythematous skin. Denies dysphagia and oral ulcers. Objective - Constitutional Vitals: Vital Signs - 12hr 11/08/17 23:54 Temperature 98.5 F Pulse Rate 94 H Respiratory 18 Rate Blood Pressure 105/54 O2 Sat by Pulse 97 Oximetry General appearance: Present: no acute distress, well-nourished, obese - Neck Neck: supple, normal ROM - Respiratory Respiratory effort: normal Respiratory: bilateral: CTA - Cardiovascular Rhythm: regular Heart Sounds: Present: S1 & S2. Absent: gallop, rub Extremities: pulses intact, Full ROM - Gastrointestinal General gastrointestinal: Present: soft, non-tender, non-distended, normal bowel sounds - Integumentary Integumentary: erythema (diffuse), rash (plaques with silver scale over 90% body with diffuse maculopapular rash ) - Musculoskeletal Musculoskeletal: 1, strength equal bilaterally - Neurologic Neurologic: moves all extremities - Labs CBC & Chem 7: 11/09/17 06:26 11/09/17 06:26 Labs: Abnormal lab results 11/08/17 11/08/17 11/08/17 Range/Units 06:02 11:46 16:27 Creatinine (0.7-1.2) mg/dL Glucose (65-100) mg/dL POC Glucose 157 H 231 H 172 H (70-105) Calcium (8.4-10.2) mg/dL 11/08/17 11/09/17 11/09/17 Range/Units 22:52 05:56 06:26 Creatinine 0.6 L (0.7-1.2) mg/dL Glucose 262 H (65-100) mg/dL POC Glucose 147 H 248 H (70-105) Calcium 8.1 L (8.4-10.2) mg/dL
[2017-11-09] MEDS: TYLENOL PO PRN (09:59)
[2017-11-09] MEDS: LEVAQUIN PO SCH (09:59)
[2017-11-09] MEDS: DELTASONE PO SCH (09:59)
[2017-11-09 22:55] LABS: ANA Screen, IFA Negative (Negative)
--- NOTE | 2017-11-10 08:22 | Progress Note ---
Assessment and Plan Psoriasis - recent diagnosis by Dr. Migdalia Pyle, design director @ [phone] - acute worsening potentially due to drug reaction - continue prednisone 60 mg PO qDay - continue phenhydramine 50 mg PO q6H Diabetes, new-diagnosis - HbA1c 8.5% - sliding scale insulin - Consistent carbohydrate diet SIRS - course improving - WBC trended from 20.8 (2/5) to 8.6 (2/8) - continue Levofloxacin 500mg PO q24H Subjective Date of service: 11/10/17 Principal diagnosis: SIRS, New-onset diabetes, Psoriasis Interval history: Patient was seen and examined today. She still complains of itchiness with generalized erythematous skin. Denies dysphagia and oral ulcers. Objective - Constitutional Vitals: Vital Signs - 12hr 11/09/17 22:58 Temperature 98.5 F Pulse Rate 76 Respiratory 18 Rate Blood Pressure 131/70 O2 Sat by Pulse 99 Oximetry General appearance: Present: no acute distress, well-nourished - EENT Eyes: PERRL, EOM intact Ears: bilateral: normal - Neck Neck: supple, normal ROM - Respiratory Respiratory effort: normal Respiratory: bilateral: CTA - Cardiovascular Rhythm: regular Heart Sounds: Present: S1 & S2. Absent: gallop, rub Extremities: pulses intact, No edema, normal color, Full ROM - Gastrointestinal General gastrointestinal: Present: soft, non-tender, non-distended, normal bowel sounds - Integumentary Integumentary: clear, warm, dry - Musculoskeletal Musculoskeletal: 1, strength equal bilaterally - Neurologic Neurologic: moves all extremities - Psychiatric Psychiatric: memory intact, appropriate mood/affect, intact judgment & insight - Labs CBC & Chem 7: 11/09/17 06:26 11/09/17 06:26 Labs: Abnormal lab results 11/09/17 11/09/17 11/09/17 Range/Units 10:43 16:44 23:04 POC Glucose 272 H 236 H 252 H (70-105) 11/10/17 Range/Units 06:22 POC Glucose 168 H (70-105)
--- NOTE | 2017-11-10 08:23 | Progress Note ---
Assessment and Plan Psoriasis - recent diagnosis by Dr. Migdalia Pyle, sack repairer @ [phone] - acute worsening potentially due to drug reaction - continue prednisone 60 mg PO qDay - continue phenhydramine 50 mg PO q6H - We will add Atarax. She once use benedryl and developed rashes in the lower abdomen - ET consot to advbise on desquamtion - Triamcinolone ointment !% Diabetes, new-diagnosis - HbA1c 8.5% - sliding scale insulin - Consistent carbohydrate diet SIRS - course improving - WBC trended from 20.8 (2/5) to 8.6 (2/8) - continue Levofloxacin 500mg PO q24H Subjective Date of service: 11/10/17 Principal diagnosis: SIRS, New-onset diabetes, Psoriasis Interval history: Patient was seen and examined today. She still complains of itchiness with generalized erythematous skin. Denies dysphagia and oral ulcers. Still having scally skin. Afebrile Objective - Exam Narrative Exam: Constitutional: Well-nourished well-developed. In no distress Head: Normocephalic atraumatic Eyes: Pupils are equal round and reactive to light Nose: No enlarged turbinates, no septal deviation. Mouth: Moist mucous membranes. Neck: Supple no thyromegaly. No bruit. No JVD Heart: Regular rate and rhythm, S1-S2 abnormal. No rubs murmurs or gallop Lungs: Clear to auscultation bilaterally no rales or rhonchi Abdomen: Soft, nontender. Bowel sound are present. Extremities: No edema no cyanosis and no clubbing. Neuro: Alert oriented Oriented x3. No focal sensory or motor deficit. Skin: Medical rashes with disquationof the skin and hyperemia Psychiatry: Euthymic. Calm. - Constitutional Vitals: Vital Signs - 12hr 11/09/17 22:58 Temperature 98.5 F Pulse Rate 76 Respiratory 18 Rate Blood Pressure 131/70 O2 Sat by Pulse 99 Oximetry - Labs CBC & Chem 7: 11/09/17 06:26 11/09/17 06:26 Labs: Abnormal lab results 11/09/17 11/09/17 11/09/17 Range/Units 10:43 16:44 23:04 POC Glucose 272 H 236 H 252 H (70-105) 11/10/17 Range/Units 06:22 POC Glucose 168 H (70-105)
[2017-11-10] MEDS: LEVAQUIN PO SCH (09:07)
[2017-11-10] MEDS: DELTASONE PO SCH (09:07)
[2017-11-10] MEDS: NOVOLOG SUB-Q SCH ×3 (09:07→18:22)
[2017-11-10] MEDS: TYLENOL PO PRN (13:14)
[2017-11-10] MEDS: ATARAX PO PRN (13:14)
[2017-11-11] MEDS: NOVOLOG SUB-Q SCH ×5 (00:30→22:30)
[2017-11-11 06:45] LABS: Basophils # (Auto) 0.1 K/mm3 (0.0-0.1); Basophils % (Auto) 0.6 % (0.0-1.8); Eosinophils # (Auto) 0.1 K/mm3 (0.0-0.4); Eosinophils % (Auto) 0.9 % (0.0-4.3); Hematocrit 35.4 % (30.3-42.9); Hemoglobin 11.4 gm/dl (10.1-14.3); Lymphocytes # (Auto) 2.2 K/mm3 (1.2-5.4); Mean Corpuscular HGB Conc 32 % (30-34); Mean Corpuscular Hemoglobin 27 pg (28-32); Mean Corpuscular Volume 85 fl (79-97); Monocytes # (Auto) 0.8 K/mm3 (0.0-0.8); Monocytes % (Auto) 6.8 % (0.0-7.3); Platelet Count 333 K/mm3 (140-440); Red Blood Count 4.18 M/mm3 (3.65-5.03); Red Cell Distribution Width 13.9 % (13.2-15.2)
[2017-11-11 06:59] LABS: INR 1.05 (0.87-1.13)
[2017-11-11 07:04] LABS: Alanine Aminotransferase 109 units/L (7-56); BUN/Creatinine Ratio 17; Blood Urea Nitrogen 12 mg/dL (7-17); Calcium 8.6 mg/dL (8.4-10.2); Hemolysis Index 18
[2017-11-11] MEDS: LEVAQUIN PO SCH (09:10)
[2017-11-11] MEDS: DELTASONE PO SCH (09:10)
--- NOTE | 2017-11-11 16:03 | Progress Note ---
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 Steroids should make it more difficult to control with titrate sliding-scale and or medicines up as symptoms began. (2) Leukocytosis Current Visit: Yes Status: Acute Qualifiers: Leukocytosis type: other Qualified Code(s): D72.828 - Other elevated white blood cell count Plan to address problem: Secondary to drug reaction (3) Psoriasiform eruption Current Visit: Yes Status: Acute Plan to address problem: Patient with skin eruption secondary to psoriasis and may be underlying anterior. We'll continue to treat patient local wound care steroids antibiotics. Appears to have some improvement over the last 24 hours. Will consist and persist without current medical treatment. History Interval history: Patient states she feels better. Less itching. Less pain. Given reaction still present. Over face chest shoulders. Extensive over arms. Hospitalist Physical - Constitutional Vitals: Temp Pulse Resp BP Pulse Ox 98.3 F 63 18 112/69 98 11/11/17 07:31 11/11/17 07:31 11/11/17 07:31 11/11/17 07:31 11/11/17 07:31 General appearance: Present: no acute distress, well-nourished - EENT Eyes: Present: PERRL, EOM intact ENT: other (significant desquamation of skin) - Neck Neck: Present: supple, normal ROM - Respiratory Respiratory: bilateral: CTA - Cardiovascular Rhythm: regular Heart Sounds: Present: S1 & S2, systolic murmur - Extremities Extremities: no ischemia, pulses intact, pulses symmetrical, No edema, normal temperature, normal color Peripheral Pulses: within normal limits - Abdominal General gastrointestinal: soft, non-tender, non-distended - Integumentary Integumentary: Present: erythema, rash. Absent: clear, warm, dry - Psychiatric Psychiatric: appropriate mood/affect, intact judgment & insight - Neurologic Neurologic: CNII-XII intact, no focal deficits Results - Labs CBC & Chem 7: 11/11/17 06:02 11/11/17 06:02 Labs: Laboratory Last Values WBC 11.7 K/mm3 (4.5-11.0) H 11/11/17 06:02 RBC 4.18 M/mm3 (3.65-5.03) 11/11/17 06:02 Hgb 11.4 gm/dl (10.1-14.3) 11/11/17 06:02 Hct 35.4 % (30.3-42.9) 11/11/17 06:02 MCV 85 fl (79-97) 11/11/17 06:02 MCH 27 pg (28-32) L 11/11/17 06:02 MCHC 32 % (30-34) 11/11/17 06:02 RDW 13.9 % (13.2-15.2) 11/11/17 06:02 Plt Count 333 K/mm3 (140-440) 11/11/17 06:02 Lymph % (Auto) 19.0 % (13.4-35.0) 11/11/17 06:02 [place] % (Auto) 6.8 % (0.0-7.3) 11/11/17 06:02 Eos % (Auto) 0.9 % (0.0-4.3) 11/11/17 06:02 Baso % (Auto) 0.6 % (0.0-1.8) 11/11/17 06:02 Lymph # 2.2 K/mm3 (1.2-5.4) 11/11/17 06:02 [place] # 0.8 K/mm3 (0.0-0.8) 11/11/17 06:02 Eos # 0.1 K/mm3 (0.0-0.4) 11/11/17 06:02 Baso # 0.1 K/mm3 (0.0-0.1) 11/11/17 06:02 Add Manual Diff Complete 11/06/17 18:28 Total Counted 100 11/06/17 18:28 Seg Neutrophils % 72.7 % (40.0-70.0) H 11/11/17 06:02 Seg Neuts % (Manual) 96.0 % (40.0-70.0) H 11/06/17 18:28 Band Neutrophils % 0 % 11/06/17 18:28 Lymphocytes % (Manual) 1.0 % (13.4-35.0) L 11/06/17 18:28 Reactive Lymphs % (Man) 0 % 11/06/17 18:28 Monocytes % (Manual) 3.0 % (0.0-7.3) 11/06/17 18:28 Eosinophils % (Manual) 0 % (0.0-4.3) 11/06/17 18:28 Basophils % (Manual) 0 % (0.0-1.8) 11/06/17 18:28 Metamyelocytes % 0 % 11/06/17 18:28 Myelocytes % 0 % 11/06/17 18:28 Promyelocytes % 0 % 11/06/17 18:28 Blast Cells % 0 % 11/06/17 18:28 Nucleated RBC % Not Reportable 11/06/17 18:28 Seg Neutrophils # 8.5 K/mm3 (1.8-7.7) H 11/11/17 06:02 Seg Neutrophils # Man 20.0 K/mm3 (1.8-7.7) H 11/06/17 18:28 Band Neutrophils # 0.0 K/mm3 11/06/17 18:28 Lymphocytes # (Manual) 0.2 K/mm3 (1.2-5.4) L 11/06/17 18:28 Abs React Lymphs (Man) 0.0 K/mm3 11/06/17 18:28 Monocytes # (Manual) 0.6 K/mm3 (0.0-0.8) 11/06/17 18:28 Eosinophils # (Manual) 0.0 K/mm3 (0.0-0.4) 11/06/17 18:28 Basophils # (Manual) 0.0 K/mm3 (0.0-0.1) 11/06/17 18:28 Metamyelocytes # 0.0 K/mm3 11/06/17 18:28 Myelocytes # 0.0 K/mm3 11/06/17 18:28 Promyelocytes # 0.0 K/mm3 11/06/17 18:28 Blast Cells # 0.0 K/mm3 11/06/17 18:28 WBC Morphology Not Reportable 11/06/17 18:28 Hypersegmented Neuts Not Reportable 11/06/17 18:28 Hyposegmented Neuts Not Reportable 11/06/17 18:28 Hypogranular Neuts Not Reportable 11/06/17 18:28 Smudge Cells Not Reportable 11/06/17 18:28 Toxic Granulation Not Reportable 11/06/17 18:28 Toxic Vacuolation Not Reportable 11/06/17 18:28 Dohle Bodies Not Reportable 11/06/17 18:28 Pelger-Huet Anomaly Not Reportable 11/06/17 18:28 Nu Rods Not Reportable 11/06/17 18:28 Platelet Estimate Appears normal 11/06/17 18:28 Clumped Platelets Not Reportable 11/06/17 18:28 Plt Clumps, EDTA Not Reportable 11/06/17 18:28 Large Platelets Not Reportable 11/06/17 18:28 Giant Platelets Not Reportable 11/06/17 18:28 Platelet Satelliting Not Reportable 11/06/17 18:28 Plt Morphology Comment Not Reportable 11/06/17 18:28 RBC Morphology Not Reportable 11/06/17 18:28 Dimorphic RBCs Not Reportable 11/06/17 18:28 Polychromasia Not Reportable 11/06/17 18:28 Hypochromasia Not Reportable 11/06/17 18:28 Poikilocytosis Few 11/06/17 18:28 Anisocytosis 1+ 11/06/17 18:28 Microcytosis Not Reportable 11/06/17 18:28 Macrocytosis Not Reportable 11/06/17 18:28 Spherocytes Not Reportable 11/06/17 18:28 Pappenheimer Bodies Not Reportable 11/06/17 18:28 Sickle Cells Not Reportable 11/06/17 18:28 Target Cells Not Reportable 11/06/17 18:28 Tear Drop Cells Not Reportable 11/06/17 18:28 Ovalocytes Not Reportable 11/06/17 18:28 Helmet Cells Not Reportable 11/06/17 18:28 Lai-[place] Bodies Not Reportable 11/06/17 18:28 [place] Rings Not Reportable 11/06/17 18:28 [place] Cells Not Reportable 11/06/17 18:28 Bite Cells Not Reportable 11/06/17 18:28 Crenated Cell Not Reportable 11/06/17 18:28 Elliptocytes Not Reportable 11/06/17 18:28 Acanthocytes (Spur) Not Reportable 11/06/17 18:28 Rouleaux Not Reportable 11/06/17 18:28 Hemoglobin C Crystals Not Reportable 11/06/17 18:28 Schistocytes Not Reportable 11/06/17 18:28 Malaria parasites Not Reportable 11/06/17 18:28 ESR 11 mm/Hr (0-20) 11/06/17 18:28 [place] Bodies Not Reportable 11/06/17 18:28 Hem Pathologist Commnt No 11/06/17 18:28 PT 14.2 Sec. (12.2-14.9) 11/11/17 06:02 INR 1.05 (0.87-1.13) 11/11/17 06:02 Sodium 142 mmol/L (137-145) 11/11/17 06:02 Potassium 4.0 mmol/L (3.6-5.0) 11/11/17 06:02 Chloride 102.1 mmol/L (98-107) 11/11/17 06:02 Carbon Dioxide 28 mmol/L (22-30) 11/11/17 06:02 Anion Gap 16 mmol/L 11/11/17 06:02 BUN 12 mg/dL (7-17) 11/11/17 06:02 Creatinine 0.7 mg/dL (0.7-1.2) 11/11/17 06:02 Estimated GFR > 60 ml/min 11/11/17 06:02 BUN/Creatinine Ratio 17 % 11/11/17 06:02 Glucose 175 mg/dL (65-100) H 11/11/17 06:02 POC Glucose 200 (70-105) H 11/11/17 11:38 Hemoglobin A1c 8.5 % (4-6) H 11/07/17 Unknown Calcium 8.6 mg/dL (8.4-10.2) 11/11/17 06:02 Total Bilirubin 0.20 mg/dL (0.1-1.2) 11/11/17 06:02 AST 64 units/L (5-40) H 11/11/17 06:02 ALT 109 units/L (7-56) H 11/11/17 06:02 Alkaline Phosphatase 192 units/L (35-129) H 11/11/17 06:02 Total Creatine Kinase 46 units/L (30-135) 11/06/17 18:28 Total Protein 5.8 g/dL (6.3-8.2) L 11/11/17 06:02 Albumin 3.0 g/dL (3.9-5) L 11/11/17 06:02 Albumin/Globulin Ratio 1.1 % 11/11/17 06:02 HCG, Qual Negative (Negative) 11/06/17 18:28 Urine Color Yellow (Yellow) 11/09/17 04:45 Urine Turbidity Clear (Clear) 11/09/17 04:45 Urine pH 5.0 (5.0-7.0) 11/09/17 04:45 Ur Specific [place] 1.022 (1.003-1.030) 11/09/17 04:45 Urine Protein <15 mg/dl mg/dL (Negative) 11/09/17 04:45 Urine Glucose (UA) >=500 mg/dL (Negative) 11/09/17 04:45 Urine Ketones 80 mg/dL (Negative) 11/09/17 04:45 Urine Blood Neg (Negative) 11/09/17 04:45 Urine Nitrite Neg (Negative) 11/09/17 04:45 Urine Bilirubin Neg (Negative) 11/09/17 04:45 Urine Urobilinogen 2.0 mg/dL (<2.0) 11/09/17 04:45 Ur Leukocyte Esterase Neg (Negative) 11/09/17 04:45 Urine WBC (Auto) 1.0 /HPF (0.0-6.0) 11/09/17 04:45 Urine RBC (Auto) 2.0 /HPF (0.0-6.0) 11/09/17 04:45 U Epithel Cells (Auto) 6.0 /HPF (0-13.0) 11/09/17 04:45 Urine Bacteria (Auto) 1+ /HPF (Negative) 11/09/17 04:45 Urine Mucus Few /HPF 11/09/17 04:45 DAVIS Screen Negative (Negative) 11/06/17 18:28
[2017-11-12] MEDS: ATARAX PO PRN (03:01)
[2017-11-12] MEDS: NOVOLOG SUB-Q SCH ×4 (08:48→23:30)
[2017-11-12] MEDS: DELTASONE PO SCH (09:22)
[2017-11-12] MEDS: LEVAQUIN PO SCH (09:22)
--- NOTE | 2017-11-12 12:00 | Progress Note ---
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 Steroids should make it more difficult to control with titrate sliding-scale and or medicines up as symptoms began. Accu- Cheks have been 202 13. Would not be too aggressive at this point. Continue sliding-scale insulin. (2) Leukocytosis Current Visit: Yes Status: Acute Qualifiers: Leukocytosis type: other Qualified Code(s): D72.828 - Other elevated white blood cell count Plan to address problem: Secondary to drug reaction (3) Psoriasiform eruption Current Visit: Yes Status: Acute Plan to address problem: Patient with skin eruption secondary to psoriasis and may be underlying anterior. We'll continue to treat patient local wound care steroids antibiotics. Appears to have some improvement over the last 24 hours. Will consist and persist without current medical treatment. At this point I think patient should be able to go home in 1-2 days. Drug reaction is slowly improving. With steroids and anticholinergic meds. History Interval history: Patient appears even more comfortable today. The skin on face and neck has much less erythema and edema. Still with significant changes on shoulders back and buttocks arms. But clinically improved. Hospitalist Physical - Constitutional Vitals: Temp Pulse Resp BP Pulse Ox 98.8 F 76 22 105/40 98 11/12/17 08:18 11/12/17 08:18 11/12/17 08:18 11/12/17 08:18 11/12/17 08:18 General appearance: Present: no acute distress, well-nourished, other ( desquamation on skin of extremities back and chest.) - EENT Eyes: Present: PERRL, EOM intact ENT: hearing intact, clear oral mucosa, dentition normal - Neck Neck: Present: supple, normal ROM - Respiratory Respiratory: bilateral: CTA - Cardiovascular Rhythm: regular Heart Sounds: Present: S1 & S2 - Extremities Extremities: no ischemia, pulses symmetrical, normal temperature Extremity abnormal: edema Peripheral Pulses: within normal limits - Abdominal General gastrointestinal: soft, non-tender, normal bowel sounds, other (obese), no hepatomegaly, no splenomegaly, no mass - Psychiatric Psychiatric: appropriate mood/affect, intact judgment & insight - Neurologic Neurologic: CNII-XII intact, moves all extremities Results - Labs CBC & Chem 7: 11/11/17 06:02 11/11/17 06:02 Labs: Laboratory Last Values WBC 11.7 K/mm3 (4.5-11.0) H 11/11/17 06:02 RBC 4.18 M/mm3 (3.65-5.03) 11/11/17 06:02 Hgb 11.4 gm/dl (10.1-14.3) 11/11/17 06:02 Hct 35.4 % (30.3-42.9) 11/11/17 06:02 MCV 85 fl (79-97) 11/11/17 06:02 MCH 27 pg (28-32) L 11/11/17 06:02 MCHC 32 % (30-34) 11/11/17 06:02 RDW 13.9 % (13.2-15.2) 11/11/17 06:02 Plt Count 333 K/mm3 (140-440) 11/11/17 06:02 Lymph % (Auto) 19.0 % (13.4-35.0) 11/11/17 06:02 [place] % (Auto) 6.8 % (0.0-7.3) 11/11/17 06:02 Eos % (Auto) 0.9 % (0.0-4.3) 11/11/17 06:02 Baso % (Auto) 0.6 % (0.0-1.8) 11/11/17 06:02 Lymph # 2.2 K/mm3 (1.2-5.4) 11/11/17 06:02 [place] # 0.8 K/mm3 (0.0-0.8) 11/11/17 06:02 Eos # 0.1 K/mm3 (0.0-0.4) 11/11/17 06:02 Baso # 0.1 K/mm3 (0.0-0.1) 11/11/17 06:02 Add Manual Diff Complete 11/06/17 18:28 Total Counted 100 11/06/17 18:28 Seg Neutrophils % 72.7 % (40.0-70.0) H 11/11/17 06:02 Seg Neuts % (Manual) 96.0 % (40.0-70.0) H 11/06/17 18:28 Band Neutrophils % 0 % 11/06/17 18:28 Lymphocytes % (Manual) 1.0 % (13.4-35.0) L 11/06/17 18:28 Reactive Lymphs % (Man) 0 % 11/06/17 18:28 Monocytes % (Manual) 3.0 % (0.0-7.3) 11/06/17 18:28 Eosinophils % (Manual) 0 % (0.0-4.3) 11/06/17 18:28 Basophils % (Manual) 0 % (0.0-1.8) 11/06/17 18:28 Metamyelocytes % 0 % 11/06/17 18:28 Myelocytes % 0 % 11/06/17 18:28 Promyelocytes % 0 % 11/06/17 18:28 Blast Cells % 0 % 11/06/17 18:28 Nucleated RBC % Not Reportable 11/06/17 18:28 Seg Neutrophils # 8.5 K/mm3 (1.8-7.7) H 11/11/17 06:02 Seg Neutrophils # Man 20.0 K/mm3 (1.8-7.7) H 11/06/17 18:28 Band Neutrophils # 0.0 K/mm3 11/06/17 18:28 Lymphocytes # (Manual) 0.2 K/mm3 (1.2-5.4) L 11/06/17 18:28 Abs React Lymphs (Man) 0.0 K/mm3 11/06/17 18:28 Monocytes # (Manual) 0.6 K/mm3 (0.0-0.8) 11/06/17 18:28 Eosinophils # (Manual) 0.0 K/mm3 (0.0-0.4) 11/06/17 18:28 Basophils # (Manual) 0.0 K/mm3 (0.0-0.1) 11/06/17 18:28 Metamyelocytes # 0.0 K/mm3 11/06/17 18:28 Myelocytes # 0.0 K/mm3 11/06/17 18:28 Promyelocytes # 0.0 K/mm3 11/06/17 18:28 Blast Cells # 0.0 K/mm3 11/06/17 18:28 WBC Morphology Not Reportable 11/06/17 18:28 Hypersegmented Neuts Not Reportable 11/06/17 18:28 Hyposegmented Neuts Not Reportable 11/06/17 18:28 Hypogranular Neuts Not Reportable 11/06/17 18:28 Smudge Cells Not Reportable 11/06/17 18:28 Toxic Granulation Not Reportable 11/06/17 18:28 Toxic Vacuolation Not Reportable 11/06/17 18:28 Dohle Bodies Not Reportable 11/06/17 18:28 Pelger-Huet Anomaly Not Reportable 11/06/17 18:28 Nu Rods Not Reportable 11/06/17 18:28 Platelet Estimate Appears normal 11/06/17 18:28 Clumped Platelets Not Reportable 11/06/17 18:28 Plt Clumps, EDTA Not Reportable 11/06/17 18:28 Large Platelets Not Reportable 11/06/17 18:28 Giant Platelets Not Reportable 11/06/17 18:28 Platelet Satelliting Not Reportable 11/06/17 18:28 Plt Morphology Comment Not Reportable 11/06/17 18:28 RBC Morphology Not Reportable 11/06/17 18:28 Dimorphic RBCs Not Reportable 11/06/17 18:28 Polychromasia Not Reportable 11/06/17 18:28 Hypochromasia Not Reportable 11/06/17 18:28 Poikilocytosis Few 11/06/17 18:28 Anisocytosis 1+ 11/06/17 18:28 Microcytosis Not Reportable 11/06/17 18:28 Macrocytosis Not Reportable 11/06/17 18:28 Spherocytes Not Reportable 11/06/17 18:28 Pappenheimer Bodies Not Reportable 11/06/17 18:28 Sickle Cells Not Reportable 11/06/17 18:28 Target Cells Not Reportable 11/06/17 18:28 Tear Drop Cells Not Reportable 11/06/17 18:28 Ovalocytes Not Reportable 11/06/17 18:28 Helmet Cells Not Reportable 11/06/17 18:28 Lai-Van Bodies Not Reportable 11/06/17 18:28 [place] Rings Not Reportable 02/05/18 18:28 Janny Cells Not Reportable 11/06/17 18:28 Bite Cells Not Reportable 11/06/17 18:28 Crenated Cell Not Reportable 11/06/17 18:28 Elliptocytes Not Reportable 11/06/17 18:28 Acanthocytes (Spur) Not Reportable 11/06/17 18:28 Rouleaux Not Reportable 11/06/17 18:28 Hemoglobin C Crystals Not Reportable 11/06/17 18:28 Schistocytes Not Reportable 11/06/17 18:28 Malaria parasites Not Reportable 11/06/17 18:28 ESR 11 mm/Hr (0-20) 11/06/17 18:28 Hadley Bodies Not Reportable 11/06/17 18:28 Hem Pathologist Commnt No 11/06/17 18:28 PT 14.2 Sec. (12.2-14.9) 11/11/17 06:02 INR 1.05 (0.87-1.13) 11/11/17 06:02 Sodium 142 mmol/L (137-145) 11/11/17 06:02 Potassium 4.0 mmol/L (3.6-5.0) 11/11/17 06:02 Chloride 102.1 mmol/L (98-107) 11/11/17 06:02 Carbon Dioxide 28 mmol/L (22-30) 11/11/17 06:02 Anion Gap 16 mmol/L 11/11/17 06:02 BUN 12 mg/dL (7-17) 11/11/17 06:02 Creatinine 0.7 mg/dL (0.7-1.2) 11/11/17 06:02 Estimated GFR > 60 ml/min 11/11/17 06:02 BUN/Creatinine Ratio 17 % 11/11/17 06:02 Glucose 175 mg/dL (65-100) H 11/11/17 06:02 POC Glucose 213 (70-105) H 11/12/17 11:43 Hemoglobin A1c 8.5 % (4-6) H 11/07/17 Unknown Calcium 8.6 mg/dL (8.4-10.2) 11/11/17 06:02 Total Bilirubin 0.20 mg/dL (0.1-1.2) 11/11/17 06:02 AST 64 units/L (5-40) H 11/11/17 06:02 ALT 109 units/L (7-56) H 11/11/17 06:02 Alkaline Phosphatase 192 units/L (35-129) H 11/11/17 06:02 Total Creatine Kinase 46 units/L (30-135) 11/06/17 18:28 Total Protein 5.8 g/dL (6.3-8.2) L 11/11/17 06:02 Albumin 3.0 g/dL (3.9-5) L 11/11/17 06:02 Albumin/Globulin Ratio 1.1 % 11/11/17 06:02 HCG, Qual Negative (Negative) 11/06/17 18:28 Urine Color Yellow (Yellow) 11/09/17 04:45 Urine Turbidity Clear (Clear) 11/09/17 04:45 Urine pH 5.0 (5.0-7.0) 11/09/17 04:45 Ur Specific [place] 1.022 (1.003-1.030) 11/09/17 04:45 Urine Protein <15 mg/dl mg/dL (Negative) 11/09/17 04:45 Urine Glucose (UA) >=500 mg/dL (Negative) 11/09/17 04:45 Urine Ketones 80 mg/dL (Negative) 11/09/17 04:45 Urine Blood Neg (Negative) 11/09/17 04:45 Urine Nitrite Neg (Negative) 11/09/17 04:45 Urine Bilirubin Neg (Negative) 11/09/17 04:45 Urine Urobilinogen 2.0 mg/dL (<2.0) 11/09/17 04:45 Ur Leukocyte Esterase Neg (Negative) 11/09/17 04:45 Urine WBC (Auto) 1.0 /HPF (0.0-6.0) 11/09/17 04:45 Urine RBC (Auto) 2.0 /HPF (0.0-6.0) 11/09/17 04:45 U Epithel Cells (Auto) 6.0 /HPF (0-13.0) 11/09/17 04:45 Urine Bacteria (Auto) 1+ /HPF (Negative) 11/09/17 04:45 Urine Mucus Few /HPF 11/09/17 04:45 DAVIS Screen Negative (Negative) 11/06/17 18:28
[2017-11-13] MEDS: NOVOLOG SUB-Q SCH ×3 (07:56→17:54)
[2017-11-13] MEDS: DELTASONE PO SCH (09:01)
[2017-11-13] MEDS: LEVAQUIN PO SCH (09:01)
[2017-11-13] MEDS: ATARAX PO PRN (09:01)
--- NOTE | 2017-11-13 12:17 | Discharge Summary ---
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
[2017-11-13] MEDS: TYLENOL PO PRN (13:24)
[2017-11-13 18:04] VITALS: BP 114/58
== END 2017-11-13 19:00 | disposition home or self-care (01) | DRG 607 ==
LOC: ED 13:41 → 3A 11-07 03:35
PROVIDERS: ADMIT Internal Medicine; ATTEND Internal Medicine
DX: L22 Diaper dermatitis (principal); Z68.41 Body mass index [BMI] 40.0-44.9, adult; E44.1 Mild protein-calorie malnutrition; R65.10 Systemic inflammatory response syndrome (SIRS) of non-infectious origin without acute organ dysfunction; D72.829 Elevated white blood cell count, unspecified; Z79.2 Long term (current) use of antibiotics; E11.9 Type 2 diabetes mellitus without complications; Z82.49 Family history of ischemic heart disease and other diseases of the circulatory system; E66.01 Morbid (severe) obesity due to excess calories; R25.2 Cramp and spasm; L40.9 Psoriasis, unspecified
CPT/HCPCS: 36415; 71045; 80048; 80053; 81001; 82550; 82962; 83036; 84703; 85007; 85025; 85027; 85610; 85652; 86038; 86060; 87040; 96374; 96375; J0696; J1200; J1650; J1815; J2920; J7030; J7512

== ENCOUNTER 2017-12-03 00:31 | Emergency (ER) | payer SELFPAY ==
[2017-12-03 00:44] VITALS: BP 114/66
--- NOTE | 2017-12-03 01:21 | XRay Report ---
FINAL REPORT EXAM: XR ELBOW 2V RT HISTORY: Rt elbow pain post fall TECHNIQUE: AP and lateral views of the right elbow were submitted. FINDINGS: There is no evidence of fracture or joint effusion. The soft tissues are well maintained. IMPRESSION: Within normal limits.
--- NOTE | 2017-12-03 01:22 | XRay Report ---
FINAL REPORT EXAM: XR KNEE 1-2V RT HISTORY: rt knee pain post fall TECHNIQUE: AP and lateral views of the right knee were obtained. FINDINGS: There is no evidence of fracture or soft tissue injury. All 3 compartments are well maintained. Joint fluid is not seen. There is mild spurring along the superior margin of the patella. IMPRESSION: Mild patellar spurring. No acute injury.
[2017-12-03] MEDS ORDERED: MOTRIN PO ONE ×2 (03:22)
--- NOTE | 2017-12-03 04:05 | Emergency Department Report ---
HPI - General Chief Complaint: Fall Time Seen by Provider: 12/03/17 03:23 - HPI HPI: The patient is a 52-year-old female who presents for evaluation of right arm and right leg pain. The patient states that she sustained a mechanical fall from tripping approximately one hour prior to arrival. She states she tripped on the sidewalk and fell on her right knee and right elbow. She complains of constant mild aching pain since, currently 5/10 in severity, exacerbated with movement of the right elbow or leg at the right knee joint, improved with rest. She states that she did not strike her head. The patient denies fever,headache , neck pain, neck stiffness, back pain, chest pain, dyspnea, abdominal pain, vision or hearing changes, smell or taste changes, paresthesias, facial drooping , slurred speech, seizure-like activity, urine or bowel incontinence or retention, or other focal neurological deficit. ED Past Medical Hx - Past Medical History Previous Medical History?: Yes Hx Diabetes: Yes Additional medical history: psoriasis - Surgical History Past Surgical History?: No - Social History Smoking Status: Never Smoker Substance Use Type: None - Medications Home Medications: Home Medications Medication Instructions Recorded Confirmed Last Taken Type Clotrimazole/Betamethasone Dip 45 gm TP DAILY #1 tube 11/13/17 Unknown Rx [Clotrimazole-Betamethasone Crm] Levofloxacin [Levaquin TAB] 500 mg PO Q24HR #1 tablet 11/13/17 Unknown Rx glipiZIDE [Glipizide] 10 mg PO BID #60 tablet 11/13/17 Unknown Rx hydrOXYzine HCL [Atarax] 25 mg PO Q6H PRN 30 Days tablet 11/13/17 Unknown Rx predniSONE [Deltasone] 10 mg PO .TAPER #48 tab 11/13/17 Unknown Rx traMADol [Ultram 50 MG tab] 50 mg PO Q6HR PRN #15 tablet 12/03/17 Unknown Rx ED Review of Systems ROS: Stated complaint: FELL AT WORK HIT RIGHT KNEE AND ARM Other details as noted in HPI Constitutional: denies: fever ENT: denies: throat or neck pain Respiratory: denies: cough, shortness of breath Cardiovascular: denies: chest pain Endocrine: denies unexplained weight loss or gain Gastrointestinal: denies: abdominal pain, nausea Genitourinary: denies: dysuria Musculoskeletal: denies: leg swelling Skin: denies: rash Neurological: reports: headache Hematological/Lymphatic: denies: easy bleeding or easy bruising Psych: denies sadness or hopelessness Physical Exam - Physical Exam Vital Signs: Vital Signs 12/03/17 00:40 Temperature 98.5 F Pulse Rate 97 H Respiratory 20 Rate Blood Pressure 114/66 Blood Pressure 114/66 [Right] O2 Sat by Pulse 98 Oximetry Physical Exam: General: well-nourished, well-developed, no acute distress Head: Normocephalic, atraumatic Eyes: normal sclera ENT: Mucous membranes are pink and moist Neck: trachea midline, neck supple, No neck stiffness, no cervical adenopathy Respiratory: Breath sounds equal bilaterally, no wheezing, rales, or rhonchi Cardio: S1 and S2 present, no murmurs, rubs, gallops, capillary refill is brisk Abdomen: Normoactive bowel sounds, soft abdomen, no rigidity, no guarding or rebound tenderness Chest WALL/Back: No tenderness to palpation of the chest wall, no CVA tenderness with percussion Musc: No erythema, fluctuance, or warmth to the knee or surrounding knee, full passive and active range of motion intact, quadriceps extensor tendon function intact, no obvious swelling or effusion, knee lateral, and superior patella joint line tenderness to palpation present, no obvious effusion appreciable, Kurt's and posterior drawer signs are negative, no LCL or MCL laxity, Lacey's unable to be performed secondary to pain. Leg compartments are soft and pliable, distal sensation and motor function intact, reflexes 2+ and symmetric at the patella and Achilles bilaterally, distal pulses intact. Tenderness to the posterior right elbow present as well, no obvious deformity, no ecchymosis of bruising, sensation, motor function, and pulses intact in the right arm distal to the elbow. Skin: No rash Neuro: no facial drooping, normal speech Psych: Normal affect ED Course Vital Signs 12/03/17 00:40 Temperature 98.5 F Pulse Rate 97 H Respiratory 20 Rate Blood Pressure 114/66 Blood Pressure 114/66 [Right] O2 Sat by Pulse 98 Oximetry ED Medical Decision Making - Medical Decision Making Patient's and examined by myself. The patient given a tab of motrin for her pain. X-rays of the right elbow and knee are unremarkable.The patient was reevaluated and reported that their symptoms were markedly improved. The patient is stable for discharge with outpatient follow-up. The patient is given follow-up and return instructions. The patient expressed understanding and agreed with the plan. The patient is discharged in stable condition. Critical care attestation.: If time is entered above; I have spent that time in minutes in the direct care of this critically ill patient, excluding procedure time. ED Disposition Clinical Impression: Right elbow pain, Acute pain of right knee Fall from slip, trip, or stumble Qualifiers: Encounter type: initial encounter Qualified Code(s): W01.0XXA - Fall on same level from slipping, tripping and stumbling without subsequent striking against object, initial encounter Disposition: DC- TO HOME OR SELFCARE Is pt being admited?: No Does the pt Need Aspirin: No Condition: Stable Instructions: Arthralgia (ED), Knee Pain (ED) Referrals: GABBY PERSAUD MD [Primary Care Provider] - 3-5 Days Time of Disposition: 03:24
== END 2017-12-03 03:46 | disposition home or self-care (01) ==
LOC: ED 00:31
DX: M25.521 Pain in right elbow (principal); M25.561 Pain in right knee; E11.9 Type 2 diabetes mellitus without complications

== ENCOUNTER 2018-05-26 11:58 | Emergency (ER) | payer SELFPAY ==
[2018-05-26 12:34] VITALS: BP 140/73
--- NOTE | 2018-05-26 17:01 | Emergency Department Report ---
ED ENT HPI - General Chief complaint: Pain General Stated complaint: SORE THROAT Time Seen by Provider: 05/26/18 16:46 Source: patient, old records reviewed Mode of arrival: Ambulatory Limitations: No Limitations - History of Present Illness Initial comments: 53-year-old female with a past medical history psoriasis and possible diabetes presents to the hospital complaints of sore throat, generalized body aches, and dry cough for the last several days. Patient denies fever. Overall pain is rated 7/10 in intensity. She denies shortness of breath or wheezing. - Related Data Previous Rx's Medication Instructions Recorded Last Taken Type Clotrimazole/Betamethasone Dip 45 gm TP DAILY #1 tube 11/13/17 Unknown Rx [Clotrimazole-Betamethasone Crm] RX: hydrOXYzine HCL [Atarax] 25 mg PO Q6H PRN 30 Days tablet 11/13/17 Unknown Rx RX: levoFLOXacin [Levaquin TAB] 500 mg PO Q24HR #1 tablet 11/13/17 Unknown Rx glipiZIDE [Glipizide] 10 mg PO BID #60 tablet 11/13/17 Unknown Rx predniSONE [Deltasone] 10 mg PO .TAPER #48 tab 11/13/17 Unknown Rx Benzonatate [Tessalon Perles] 100 mg PO Q8HR #30 capsule 05/26/18 Unknown Rx Ibuprofen [Motrin] 800 mg PO Q8HR PRN #30 tablet 05/26/18 Unknown Rx RX: Azithromycin [Zithromax Z-TANI] 1 dose PO DAILY 5 Days tab 05/26/18 Unknown Rx RX: traMADol [Ultram 50 MG tab] 50 mg PO Q6HR PRN #15 tablet 05/26/18 Unknown Rx Allergies Allergy/AdvReac Type Severity Reaction Status Date / Time diphenhydramine Allergy Rash Verified 05/26/18 12:30 [From Benadryl] metformin Allergy Rash Verified 05/26/18 12:30 ED Dental HPI - General Chief complaint: Pain General Stated complaint: SORE THROAT Time Seen by Provider: 05/26/18 16:46 Source: patient Mode of arrival: Ambulatory Limitations: No Limitations - Related Data Previous Rx's Medication Instructions Recorded Last Taken Type Clotrimazole/Betamethasone Dip 45 gm TP DAILY #1 tube 11/13/17 Unknown Rx [Clotrimazole-Betamethasone Crm] RX: hydrOXYzine HCL [Atarax] 25 mg PO Q6H PRN 30 Days tablet 11/13/17 Unknown Rx RX: levoFLOXacin [Levaquin TAB] 500 mg PO Q24HR #1 tablet 11/13/17 Unknown Rx glipiZIDE [Glipizide] 10 mg PO BID #60 tablet 11/13/17 Unknown Rx predniSONE [Deltasone] 10 mg PO .TAPER #48 tab 11/13/17 Unknown Rx Benzonatate [Tessalon Perles] 100 mg PO Q8HR #30 capsule 05/26/18 Unknown Rx Ibuprofen [Motrin] 800 mg PO Q8HR PRN #30 tablet 05/26/18 Unknown Rx RX: Azithromycin [Zithromax Z-TANI] 1 dose PO DAILY 5 Days tab 05/26/18 Unknown Rx RX: traMADol [Ultram 50 MG tab] 50 mg PO Q6HR PRN #15 tablet 05/26/18 Unknown Rx Allergies Allergy/AdvReac Type Severity Reaction Status Date / Time diphenhydramine Allergy Rash Verified 05/26/18 12:30 [From Benadryl] metformin Allergy Rash Verified 05/26/18 12:30 ED Review of Systems ROS: Stated complaint: SORE THROAT Other details as noted in HPI Comment: All other systems reviewed and negative ED Past Medical Hx - Past Medical History Hx Diabetes: Yes Additional medical history: psoriasis - Surgical History Past Surgical History?: No - Social History Smoking Status: Never Smoker Substance Use Type: None - Medications Home Medications: Home Medications Medication Instructions Recorded Confirmed Last Taken Type Clotrimazole/Betamethasone Dip 45 gm TP DAILY #1 tube 11/13/17 Unknown Rx [Clotrimazole-Betamethasone Crm] RX: hydrOXYzine HCL [Atarax] 25 mg PO Q6H PRN 30 Days tablet 11/13/17 Unknown Rx RX: levoFLOXacin [Levaquin TAB] 500 mg PO Q24HR #1 tablet 11/13/17 Unknown Rx glipiZIDE [Glipizide] 10 mg PO BID #60 tablet 11/13/17 Unknown Rx predniSONE [Deltasone] 10 mg PO .TAPER #48 tab 11/13/17 Unknown Rx Benzonatate [Tessalon Perles] 100 mg PO Q8HR #30 capsule 05/26/18 Unknown Rx Ibuprofen [Motrin] 800 mg PO Q8HR PRN #30 tablet 05/26/18 Unknown Rx RX: Azithromycin [Zithromax Z-TANI] 1 dose PO DAILY 5 Days tab 05/26/18 Unknown Rx RX: traMADol [Ultram 50 MG tab] 50 mg PO Q6HR PRN #15 tablet 05/26/18 Unknown Rx ED Physical Exam - General Limitations: No Limitations - Other Other exam information: General: No limitations, patient is alert in no acute distress Head exam: Atraumatic, normocephalic Eyes exam: Normal appearance ENT: Moist mucous membrane, no exudates or erythema Neck exam: Normal inspection, full range of motion Respiratory exam: Clear to auscultation bilateral, no wheezes, rales, crackles Cardiovascular: Normal rate and rhythm, normal heart sounds Abdomen: Soft, nondistended, and nontender, with normal bowel sounds, no rebound, or guarding Extremity: Full range of motion normal inspection no deformity Back: Normal Inspection, full range of motion, no tenderness Neurologic: Alert, oriented x3, cranial nerves intact, no motor or sensory deficit Psychiatric: normal affect, normal mood Skin: Warm, dry, intact ED Course Vital Signs 05/26/18 12:31 Temperature 97.8 F Pulse Rate 83 Respiratory 16 Rate Blood Pressure 140/73 O2 Sat by Pulse 98 Oximetry ED Medical Decision Making - Medical Decision Making URI symptoms are likely due to virus Will be covered with the Z-Tani for atypical pneumonia and symptomatic treatment Previous medical record reviewed and patient has been placed on glipizide for hemoglobin A1c greater than 8 and elevated glucose while admitted here in November. Patient states she is now longer taking any diabetes medication to her knowledge she is not a diabetic. Accu-Chek in the 180s here. Outpatient follow-up will be advised for further treatment and monitoring. - Differential Diagnosis pharyngitis, pneumonia, bronchitis, URI, hyperglycemia Critical Care Time: No Critical care attestation.: If time is entered above; I have spent that time in minutes in the direct care of this critically ill patient, excluding procedure time. ED Disposition Clinical Impression: Viral syndrome Disposition: DC-01 TO HOME OR SELFCARE Is pt being admited?: No Does the pt Need Aspirin: No Condition: Stable Instructions: Viral Syndrome (ED) Additional Instructions: Take the medication as prescribed. Follow up with your doctor or the doctor provided. Return if symptoms worsen as indicated by your discharge instructions Prescriptions: RX: Azithromycin [Zithromax Z-TANI] 1 dose PO DAILY 5 Days tab Benzonatate [Tessalon Perles] 100 mg PO Q8HR #30 capsule Ibuprofen [Motrin] 800 mg PO Q8HR PRN #30 tablet PRN Reason: Pain, Moderate (4-6) RX: traMADol [Ultram 50 MG tab] 50 mg PO Q6HR PRN #15 tablet PRN Reason: Pain Referrals: [facility] [Provider Group] - 3-5 Days Time of Disposition: 17:02
== END 2018-05-26 17:12 | disposition home or self-care (01) ==
LOC: ED 11:58
DX: B34.9 Viral infection, unspecified (principal); E11.9 Type 2 diabetes mellitus without complications; Z88.8 Allergy status to other drugs, medicaments and biological substances
CPT/HCPCS: 82962; 99282

== ENCOUNTER 2018-07-25 22:06 | Emergency (ER) | payer SELFPAY ==
[2018-07-26] MEDS ORDERED: MOTRIN PO ONE (00:45)
[2018-07-26 01:07] LABS: Basophils # (Auto) 0.1 K/mm3 (0.0-0.1); Basophils % (Auto) 0.7 % (0.0-1.8); Eosinophils # (Auto) 0.1 K/mm3 (0.0-0.4); Eosinophils % (Auto) 0.7 % (0.0-4.3); Hematocrit 45.9 % (30.3-42.9); Hemoglobin 14.9 gm/dl (10.1-14.3); Lymphocytes # (Auto) 2.6 K/mm3 (1.2-5.4); Lymphocytes % (Auto) 23.8 % (13.4-35.0); Mean Corpuscular HGB Conc 33 % (30-34); Mean Corpuscular Hemoglobin 27 pg (28-32); Mean Corpuscular Volume 83 fl (79-97); Monocytes # (Auto) 0.6 K/mm3 (0.0-0.8); Monocytes % (Auto) 5.2 % (0.0-7.3); Platelet Count 245 K/mm3 (140-440); Red Blood Count 5.54 M/mm3 (3.65-5.03); Red Cell Distribution Width 14.1 % (13.2-15.2)
[2018-07-26 01:21] LABS: Alanine Aminotransferase 10 units/L (7-56); Albumin 3.8 g/dL (3.9-5); BUN/Creatinine Ratio 24; Blood Urea Nitrogen 19 mg/dL (7-17); Calcium 9.6 mg/dL (8.4-10.2); Hemolysis Index 14
--- NOTE | 2018-07-26 01:21 | XRay Report ---
FINAL REPORT EXAM: XR CHEST ROUTINE 2V HISTORY: weakness COMPARISON: November 2017. FINDINGS:: Frontal and lateral views of the chest obtained. Heart upper limits normal in size.. No focal consolidation or effusion. No pneumothorax. Visualized bony thorax is grossly intact. IMPRESSION:: No acute findings.
--- NOTE | 2018-07-26 02:21 | Emergency Department Report ---
ED General Adult HPI - General Chief complaint: Pain General Stated complaint: FATIGUE; WEAKNESS Time Seen by Provider: 07/26/18 00:24 Source: patient Mode of arrival: Ambulatory Limitations: No Limitations - History of Present Illness Initial comments: Patient is a 53-year-old white female history of diabetes who presents for generalized weakness fatigue urostomy for the last week patient states cough productive of white thick no fever no wheezing no chest pain no nausea vomiting no back pain symptoms are exacerbated by activity and environmental exposure symptoms are relieved by rest Onset/Timin -: week(s) Severity scale (0 -10): 5 Quality: aching Consistency: intermittent Improves with: none Worsens with: other (activity ) Associated Symptoms: cough. denies: confusion, chest pain, diaphoresis, fever/ chills, headaches, loss of appetite, malaise, nausea/vomiting, rash, shortness of breath, syncope, weakness Treatments Prior to Arrival: none - Related Data Previous Rx's Medication Instructions Recorded Last Taken Type Clotrimazole/Betamethasone Dip 45 gm TP DAILY #1 tube 11/13/17 Unknown Rx [Clotrimazole-Betamethasone Crm] glipiZIDE [Glipizide] 10 mg PO BID #60 tablet 11/13/17 Unknown Rx hydrOXYzine HCL [Atarax] 25 mg PO Q6H PRN 30 Days tablet 11/13/17 Unknown Rx levoFLOXacin [Levaquin TAB] 500 mg PO Q24HR #1 tablet 11/13/17 Unknown Rx predniSONE [Deltasone] 10 mg PO .TAPER #48 tab 11/13/17 Unknown Rx Azithromycin [Zithromax Z-TANI] 1 dose PO DAILY 5 Days tab 05/26/18 Unknown Rx Benzonatate [Tessalon Perles] 100 mg PO Q8HR #30 capsule 05/26/18 Unknown Rx Ibuprofen [Motrin] 800 mg PO Q8HR PRN #30 tablet 05/26/18 Unknown Rx traMADol [Ultram 50 MG tab] 50 mg PO Q6HR PRN #15 tablet 05/26/18 Unknown Rx Benzonatate [Tessalon Perle] 100 mg PO TID PRN #30 capsule 07/26/18 Unknown Rx Fluticasone [Flonase] 1 spray NS QDAY #1 bottle 07/26/18 Unknown Rx Ibuprofen 800 mg PO TID PRN #30 tablet 07/26/18 Unknown Rx Loratadine 10 mg PO DAILY #30 tablet 07/26/18 Unknown Rx predniSONE [Deltasone] 40 mg PO QDAY 5 Days #10 tablet 07/26/18 Unknown Rx Allergies Allergy/AdvReac Type Severity Reaction Status Date / Time diphenhydramine Allergy Rash Verified 05/26/18 12:30 [From Benadryl] metformin Allergy Rash Verified 05/26/18 12:30 ED Review of Systems ROS: Stated complaint: FATIGUE; WEAKNESS Other details as noted in HPI Constitutional: denies: chills, fever Eyes: denies: eye pain, eye discharge, vision change ENT: congestion. denies: ear pain, throat pain Respiratory: cough. denies: shortness of breath, SOB with exertion, wheezing Cardiovascular: denies: chest pain, palpitations Endocrine: no symptoms reported Gastrointestinal: denies: abdominal pain, nausea, diarrhea Genitourinary: denies: urgency, dysuria, frequency, hematuria, discharge, abnormal menses, dyspareunia Musculoskeletal: denies: back pain, joint swelling, arthralgia Skin: denies: rash, lesions Neurological: denies: headache, weakness, paresthesias Psychiatric: denies: anxiety, depression Hematological/Lymphatic: as per HPI ED Past Medical Hx - Past Medical History Hx Diabetes: Yes (diet controlled) Additional medical history: psoriasis - Surgical History Past Surgical History?: No - Social History Smoking Status: Never Smoker Substance Use Type: None - Medications Home Medications: Home Medications Medication Instructions Recorded Confirmed Last Taken Type Clotrimazole/Betamethasone Dip 45 gm TP DAILY #1 tube 11/13/17 Unknown Rx [Clotrimazole-Betamethasone Crm] glipiZIDE [Glipizide] 10 mg PO BID #60 tablet 11/13/17 Unknown Rx hydrOXYzine HCL [Atarax] 25 mg PO Q6H PRN 30 Days tablet 11/13/17 Unknown Rx levoFLOXacin [Levaquin TAB] 500 mg PO Q24HR #1 tablet 11/13/17 Unknown Rx predniSONE [Deltasone] 10 mg PO .TAPER #48 tab 11/13/17 Unknown Rx Azithromycin [Zithromax Z-TANI] 1 dose PO DAILY 5 Days tab 05/26/18 Unknown Rx Benzonatate [Tessalon Perles] 100 mg PO Q8HR #30 capsule 05/26/18 Unknown Rx Ibuprofen [Motrin] 800 mg PO Q8HR PRN #30 tablet 05/26/18 Unknown Rx traMADol [Ultram 50 MG tab] 50 mg PO Q6HR PRN #15 tablet 05/26/18 Unknown Rx Benzonatate [Tessalon Perle] 100 mg PO TID PRN #30 capsule 07/26/18 Unknown Rx Fluticasone [Flonase] 1 spray NS QDAY #1 bottle 07/26/18 Unknown Rx Ibuprofen 800 mg PO TID PRN #30 tablet 07/26/18 Unknown Rx Loratadine 10 mg PO DAILY #30 tablet 07/26/18 Unknown Rx predniSONE [Deltasone] 40 mg PO QDAY 5 Days #10 tablet 07/26/18 Unknown Rx ED Physical Exam - General Limitations: No Limitations General appearance: alert, in no apparent distress - Head Head exam: Present: atraumatic, normocephalic - Eye Eye exam: Present: normal appearance, PERRL, EOMI Pupils: Present: normal accommodation - ENT ENT exam: Present: normal orophraynx, mucous membranes moist, TM's normal bilaterally, normal external ear exam - Expanded ENT Exam Expanded Ear exam: Present: normal external inspection Mouth exam: Absent: trismus, other Teeth exam: Present: normal inspection Throat exam: Positive: normal inspection, tonsillar erythema. Negative: tonsillomegaly, tonsillar exudate, R peritonsillar mass, L peritonsillar mass - Neck Neck exam: Present: normal inspection, full ROM. Absent: tenderness, meningismus, lymphadenopathy, thyromegaly - Respiratory Respiratory exam: Present: normal lung sounds bilaterally. Absent: wheezes, rhonchi, chest wall tenderness - Cardiovascular Cardiovascular Exam: Present: regular rate, normal rhythm, normal heart sounds. Absent: systolic murmur, diastolic murmur, rubs, gallop - GI/Abdominal GI/Abdominal exam: Present: soft, normal bowel sounds. Absent: rebound, bruit, hernia - Rectal Rectal exam: Present: deferred - Extremities Exam Extremities exam: Present: normal inspection - Back Exam Back exam: Present: normal inspection, full ROM. Absent: tenderness, CVA tenderness (R), CVA tenderness (L), muscle spasm, paraspinal tenderness, vertebral tenderness, rash noted - Neurological Exam Neurological exam: Present: alert, oriented X3, CN II-XII intact, normal gait, reflexes normal - Psychiatric Psychiatric exam: Present: normal affect, normal mood - Skin Skin exam: Present: warm, dry, intact, normal color. Absent: rash ED Course Vital Signs 07/25/18 07/25/18 22:48 23:32 Temperature 97.8 F Pulse Rate 107 H Respiratory 18 18 Rate Blood Pressure 129/78 O2 Sat by Pulse 98 Oximetry ED Medical Decision Making - Lab Data Result diagrams: 07/26/18 00:53 07/26/18 00:53 Laboratory Tests 07/25/18 07/26/18 07/26/18 22:56 00:53 00:53 WBC 11.1 H RBC 5.54 H Hgb 14.9 H Hct 45.9 H MCV 83 MCH 27 L MCHC 33 RDW 14.1 Plt Count 245 Lymph % (Auto) 23.8 Worth % (Auto) 5.2 Eos % (Auto) 0.7 Baso % (Auto) 0.7 Lymph # 2.6 Worth # 0.6 Eos # 0.1 Baso # 0.1 Seg Neutrophils % 69.6 Seg Neutrophils # 7.8 H Sodium 142 Potassium 4.5 Chloride 102.5 Carbon Dioxide 31 H Anion Gap 13 BUN 19 H Creatinine 0.8 Estimated GFR > 60 BUN/Creatinine Ratio 24 Glucose 184 H POC Glucose 248 H Calcium 9.6 Total Bilirubin 0.20 AST 11 ALT 10 Alkaline Phosphatase 135 H Total Protein 6.0 L Albumin 3.8 L Albumin/Globulin Ratio 1.7 - Radiology Data Radiology results: report reviewed, image reviewed Normal chest x-ray no infiltrates no opacities - Medical Decision Making His urine Accu-Chek's 184, she was x-ray normal no infiltration opacities, patient denies dysuria frequency or urgency, There is no nausea vomiting no chest pain or shortness of breath there is no fever or chills plan treatment for URI syndrome Flonase loratadine Kurtis Leyva follow up with PCP in 2-3 days there is no wheezing or rhonchi chest x-ray is unremarkable patient denies history of respiratory complaint. pt for dc to home in stable condition at this time. Critical care attestation.: If time is entered above; I have spent that time in minutes in the direct care of this critically ill patient, excluding procedure time. ED Disposition Clinical Impression: Cough URI (upper respiratory infection) Qualifiers: URI type: unspecified viral URI Qualified Code(s): J06.9 - Acute upper respiratory infection, unspecified Disposition: TO HOME OR SELFCARE Is pt being admited?: No Does the pt Need Aspirin: No Condition: Good Instructions: Upper Respiratory Infection (ED) Prescriptions: Benzonatate [Tessalon Perle] 100 mg PO TID PRN #30 capsule PRN Reason: Cough Fluticasone [Flonase] 1 spray NS QDAY #1 bottle Ibuprofen 800 mg PO TID PRN #30 tablet PRN Reason: pain fever Loratadine 10 mg PO DAILY #30 tablet predniSONE [Deltasone] 40 mg PO QDAY 5 Days #10 tablet Referrals: PRIMARY CARE,MD [Primary Care Provider] - 3-5 Days Forms: Work/School Release Form(ED) Time of Disposition: 02:32
[2018-07-26 02:49] VITALS: BP 134/65
== END 2018-07-26 02:48 | disposition home or self-care (01) ==
LOC: ED 22:06
DX: J06.9 Acute upper respiratory infection, unspecified (principal); E11.9 Type 2 diabetes mellitus without complications; L40.9 Psoriasis, unspecified; Z88.6 Allergy status to analgesic agent; Z88.8 Allergy status to other drugs, medicaments and biological substances; Z79.899 Other long term (current) drug therapy
CPT/HCPCS: 36415; 71046; 80053; 82962; 85025

== ENCOUNTER 2020-08-07 11:46 | Emergency (ER) | payer MEDICAID | END 2020-08-07 11:50 | disposition left against medical advice (07) | LOC: ED 11:46 | DX: R10.9 Unspecified abdominal pain (principal); Z53.21 Procedure and treatment not carried out due to patient leaving prior to being seen by health care provider ==

== ENCOUNTER 2021-11-09 09:25 | Emergency (ER) | payer SELFPAY ==
--- NOTE | 2021-11-09 09:49 | Event Note ---
ED Screening Note ED Screening Note: pt told RN she has rash and thoughts of hurting self on my exam she was constricted; not giving me med info told me she has a rash and has been in and out of ERs to get help and no on will help her she has thoughts SI but no plan no HI when asked med hx she told me "rash" no other hx no meds no surgery she reports periods irregular- menopausal denies prior mh hx or tx none noted in EMR This initial assessment/diagnostic orders/clinical plan/treatment(s) is/are subject to change based on patients health status, clinical progression and re- assessment by fellow clinical providers in the ED. Further treatment and workup at subsequent clinical providers discretion. Patient/guardian urged not to elope from the ED as their condition may be serious if not clinically assessed and managed. Initial orders include: MHE
[2021-11-09 10:49] LABS: Alanine Aminotransferase 9 units/L (7-56); BUN/Creatinine Ratio 9; Blood Urea Nitrogen 8 mg/dL (7-17); Calcium 10.1 mg/dL (8.4-10.2); Hemolysis Index 7
[2021-11-09 10:50] LABS: Basophils # (Auto) 0.1 K/mm3 (0.0-0.1); Basophils % (Auto) 0.7 % (0.0-1.8); Eosinophils # (Auto) 0.3 K/mm3 (0.0-0.4); Eosinophils % (Auto) 3.3 % (0.0-4.3); Hematocrit 41.1 % (30.3-42.9); Hemoglobin 12.9 gm/dl (10.1-14.3); Lymphocytes # (Auto) 1.2 K/mm3 (1.2-5.4); Lymphocytes % (Auto) 14.9 % (13.4-35.0); Mean Corpuscular HGB Conc 31 % (30-34); Mean Corpuscular Volume 81 fl (79-97); Monocytes # (Auto) 0.4 K/mm3 (0.0-0.8); Monocytes % (Auto) 5.2 % (0.0-7.3); Platelet Count 264 K/mm3 (140-440); Red Blood Count 5.09 M/mm3 (3.65-5.03); Red Cell Distribution Width 14.2 % (13.2-15.2)
--- NOTE | 2021-11-09 11:45 | Emergency Department Report ---
ED General Adult HPI - General Chief complaint: Psych Stated complaint: SUICIDAL TENDENCIES Time Seen by Provider: 11/09/21 09:48 Source: patient Mode of arrival: Ambulatory Limitations: No Limitations - Related Data Previous Rx's Medication Instructions Recorded Last Taken Type Clotrimazole/Betamethasone Dip 45 gm TP DAILY #1 tube 11/13/17 Unknown Rx [Clotrimazole-Betamethasone Crm] Furosemide [Lasix] 20 mg PO QDAY #7 tablet 02/09/19 Unknown Rx Glimepiride [Amaryl] 2 mg PO QAM 30 Days #30 tablet 02/16/20 Unknown Rx glipiZIDE [Glucotrol] 10 mg PO BID #60 tab 02/16/20 Unknown Rx Clotrimazole/Betamethasone Dip 1 applic TP BID #60 g 11/09/21 Unknown Rx [Clotrimazole-Betamethasone Lotion] hydrOXYzine HCL [Atarax] 25 mg PO Q6H PRN 30 Days tablet 11/09/21 Unknown Rx predniSONE [Deltasone] 20 mg PO DAILY #5 tablet 11/09/21 Unknown Rx Allergies Allergy/AdvReac Type Severity Reaction Status Date / Time diphenhydramine Allergy Rash Verified 02/09/19 10:02 [From Benadryl] metformin Allergy Rash Verified 02/09/19 10:02 ED Review of Systems ROS: Stated complaint: SUICIDAL TENDENCIES Other details as noted in HPI Comment: All other systems reviewed and negative ED Past Medical Hx - Past Medical History Previous Medical History?: Yes Hx Diabetes: Yes (diet controlled) Additional medical history: psoriasis - Surgical History Past Surgical History?: No - Family History Family history: no significant - Social History Smoking Status: Never Smoker Substance Use Type: None - Medications Home Medications: Home Medications Medication Instructions Recorded Confirmed Last Taken Type Clotrimazole/Betamethasone Dip 45 gm TP DAILY #1 tube 11/13/17 Unknown Rx [Clotrimazole-Betamethasone Crm] Furosemide [Lasix] 20 mg PO QDAY #7 tablet 02/09/19 Unknown Rx Glimepiride [Amaryl] 2 mg PO QAM 30 Days #30 tablet 02/16/20 Unknown Rx glipiZIDE [Glucotrol] 10 mg PO BID #60 tab 02/16/20 Unknown Rx Clotrimazole/Betamethasone Dip 1 applic TP BID #60 g 11/09/21 Unknown Rx [Clotrimazole-Betamethasone Lotion] hydrOXYzine HCL [Atarax] 25 mg PO Q6H PRN 30 Days tablet 11/09/21 Unknown Rx predniSONE [Deltasone] 20 mg PO DAILY #5 tablet 11/09/21 Unknown Rx ED Physical Exam - General Limitations: No Limitations General appearance: alert, in no apparent distress - Head Head exam: Present: atraumatic, normocephalic - Eye Eye exam: Present: normal appearance - ENT ENT exam: Present: mucous membranes moist - Neck Neck exam: Present: normal inspection - Respiratory Respiratory exam: Present: normal lung sounds bilaterally. Absent: respiratory distress - Cardiovascular Cardiovascular Exam: Present: regular rate, normal rhythm. Absent: systolic murmur, diastolic murmur, rubs, gallop - GI/Abdominal GI/Abdominal exam: Present: soft, normal bowel sounds - Extremities Exam Extremities exam: Present: normal inspection - Back Exam Back exam: Present: normal inspection - Neurological Exam Neurological exam: Present: alert, oriented X3 - Psychiatric Psychiatric exam: Present: normal affect, normal mood - Skin Skin exam: Present: warm, dry, other. Absent: rash ED Course Vital Signs 11/09/21 09:30 Temperature 98.2 F Pulse Rate 98 H Respiratory 16 Rate Blood Pressure 181/87 [Left] O2 Sat by Pulse 99 Oximetry ED Medical Decision Making - Lab Data Result diagrams: 11/09/21 10:08 11/09/21 10:08 - Medical Decision Making Vital Signs 11/09/21 09:30 Temperature 98.2 F Pulse Rate 98 H Respiratory 16 Rate Blood Pressure 181/87 [Left] O2 Sat by Pulse 99 Oximetry Vital Signs 11/09/21 09:30 Temperature 98.2 F Pulse Rate 98 H Respiratory 16 Rate Blood Pressure 181/87 [Left] O2 Sat by Pulse 99 Oximetry Lab Results 11/09/21 11/09/21 11/09/21 Range/Units 10:08 10:08 10:08 WBC 8.2 (4.5-11.0) K/mm3 RBC 5.09 H (3.65-5.03) M/mm3 Hgb 12.9 (10.1-14.3) gm/dl Hct 41.1 (30.3-42.9) % MCV 81 (79-97) fl MCH 25 L (28-32) pg MCHC 31 (30-34) % RDW 14.2 (13.2-15.2) % Plt Count 264 (140-440) K/mm3 Lymph % (Auto) 14.9 (13.4-35.0) % Hernando % (Auto) 5.2 (0.0-7.3) % Eos % (Auto) 3.3 (0.0-4.3) % Baso % (Auto) 0.7 (0.0-1.8) % Lymph # (Auto) 1.2 (1.2-5.4) K/mm3 Hernando # (Auto) 0.4 (0.0-0.8) K/mm3 Eos # (Auto) 0.3 (0.0-0.4) K/mm3 Baso # (Auto) 0.1 (0.0-0.1) K/mm3 Seg Neutrophils % 75.9 H (40.0-70.0) % Seg Neutrophils # 6.2 (1.8-7.7) K/mm3 Sodium 143 (137-145) mmol/L Potassium 4.2 (3.6-5.0) mmol/L Chloride 103.7 (98-107) mmol/L Carbon Dioxide 26 (22-30) mmol/L Anion Gap 18 mmol/L BUN 8 (7-17) mg/dL Creatinine 0.9 (0.6-1.2) mg/dL Estimated GFR > 60 ml/min BUN/Creatinine Ratio 9 % Glucose 211 H (65-100) mg/dL Calcium 10.1 (8.4-10.2) mg/dL Total Bilirubin 0.20 (0.1-1.2) mg/dL AST 12 (5-40) units/L ALT 9 (7-56) units/L Alkaline Phosphatase 132 H (35-129) units/L Total Protein 7.5 (6.3-8.2) g/dL Albumin 4.0 (3.9-5) g/dL Albumin/Globulin Ratio 1.1 % TSH 1.390 (0.270-4.200) mlU/mL HCG, Qual (Negative) Salicylates (2.8-20.0) mg/dL Acetaminophen (10.0-30.0) ug/mL Plasma/Serum Alcohol (0-0.07) % 02/08/22 02/08/22 02/08/22 Range/Units 10:08 10:08 10:08 WBC (4.5-11.0) K/mm3 RBC (3.65-5.03) M/mm3 Hgb (10.1-14.3) gm/dl Hct (30.3-42.9) % MCV (79-97) fl MCH (28-32) pg MCHC (30-34) % RDW (13.2-15.2) % Plt Count (140-440) K/mm3 Lymph % (Auto) (13.4-35.0) % Hernando % (Auto) (0.0-7.3) % Eos % (Auto) (0.0-4.3) % Baso % (Auto) (0.0-1.8) % Lymph # (Auto) (1.2-5.4) K/mm3 Hernando # (Auto) (0.0-0.8) K/mm3 Eos # (Auto) (0.0-0.4) K/mm3 Baso # (Auto) (0.0-0.1) K/mm3 Seg Neutrophils % (40.0-70.0) % Seg Neutrophils # (1.8-7.7) K/mm3 Sodium (137-145) mmol/L Potassium (3.6-5.0) mmol/L Chloride (98-107) mmol/L Carbon Dioxide (22-30) mmol/L Anion Gap mmol/L BUN (7-17) mg/dL Creatinine (0.6-1.2) mg/dL Estimated GFR ml/min BUN/Creatinine Ratio % Glucose (65-100) mg/dL Calcium (8.4-10.2) mg/dL Total Bilirubin (0.1-1.2) mg/dL AST (5-40) units/L ALT (7-56) units/L Alkaline Phosphatase (35-129) units/L Total Protein (6.3-8.2) g/dL Albumin (3.9-5) g/dL Albumin/Globulin Ratio % TSH (0.270-4.200) mlU/mL HCG, Qual (Negative) Salicylates < 0.3 L (2.8-20.0) mg/dL Acetaminophen 5.0 L (10.0-30.0) ug/mL Plasma/Serum Alcohol < 0.01 (0-0.07) % 11/09/21 Range/Units 10:08 WBC (4.5-11.0) K/mm3 RBC (3.65-5.03) M/mm3 Hgb (10.1-14.3) gm/dl Hct (30.3-42.9) % MCV (79-97) fl MCH (28-32) pg MCHC (30-34) % RDW (13.2-15.2) % Plt Count (140-440) K/mm3 Lymph % (Auto) (13.4-35.0) % Hernando % (Auto) (0.0-7.3) % Eos % (Auto) (0.0-4.3) % Baso % (Auto) (0.0-1.8) % Lymph # (Auto) (1.2-5.4) K/mm3 Hernando # (Auto) (0.0-0.8) K/mm3 Eos # (Auto) (0.0-0.4) K/mm3 Baso # (Auto) (0.0-0.1) K/mm3 Seg Neutrophils % (40.0-70.0) % Seg Neutrophils # (1.8-7.7) K/mm3 Sodium (137-145) mmol/L Potassium (3.6-5.0) mmol/L Chloride (98-107) mmol/L Carbon Dioxide (22-30) mmol/L Anion Gap mmol/L BUN (7-17) mg/dL Creatinine (0.6-1.2) mg/dL Estimated GFR ml/min BUN/Creatinine Ratio % Glucose (65-100) mg/dL Calcium (8.4-10.2) mg/dL Total Bilirubin (0.1-1.2) mg/dL AST (5-40) units/L ALT (7-56) units/L Alkaline Phosphatase (35-129) units/L Total Protein (6.3-8.2) g/dL Albumin (3.9-5) g/dL Albumin/Globulin Ratio % TSH (0.270-4.200) mlU/mL HCG, Qual Negative (Negative) Salicylates (2.8-20.0) mg/dL Acetaminophen (10.0-30.0) ug/mL Plasma/Serum Alcohol (0-0.07) % Critical care attestation.: If time is entered above; I have spent that time in minutes in the direct care of this critically ill patient, excluding procedure time. ED Disposition Clinical Impression: Psoriasiform eruption Disposition: 01 HOME / SELF CARE / HOMELESS Is pt being admited?: No Does the pt Need Aspirin: No Condition: Stable Prescriptions: hydrOXYzine HCL [Atarax] 25 mg PO Q6H PRN 30 Days tablet PRN Reason: Itching predniSONE [Deltasone] 20 mg PO DAILY #5 tablet Referrals: ARABELLA ALVA MD [Staff Physician] - 3-5 Days Time of Disposition: 11:43
[2021-11-09 12:02] VITALS: BP 174/82
== END 2021-11-09 12:05 | disposition home or self-care (01) ==
LOC: ED 09:25
DX: L40.0 Psoriasis vulgaris (principal); E11.8 Type 2 diabetes mellitus with unspecified complications
CPT/HCPCS: 36415; 80053; 80320; 84443; 84703; 85025; 99283; G0480

== ENCOUNTER 2021-12-04 08:55 | Emergency (ER) | payer SELFPAY ==
[2021-12-04] MEDS ORDERED: SODIUM CHLORIDE 0.9% 1000 ML 1,000 ML IV ONE (09:08)
[2021-12-04] MEDS ORDERED: ONDANSETRON 4 MG/2 ML INJ IV ONE (09:08)
[2021-12-04] MEDS ORDERED: fentaNYL 100 MCG/2 ML INJ IV ONE (09:09)
--- NOTE | 2021-12-04 09:13 | Emergency Department Report ---
ED Abdominal Pain HPI - General Chief Complaint: Abdominal Pain Stated Complaint: ABD PAIN X 24HRS Time Seen by Provider: 12/04/21 09:08 Source: EMS Mode of arrival: Stretcher Limitations: No Limitations - History of Present Illness Initial Comments: Patient presents by EMS secondary to abdominal pain. For the last day she has had a generalized abdominal pain. She describes it as sharp and stabbing. It does seem to be constant. It does seem to wax and wane in intensity. The pain has been diffuse. There is no trauma associated with this. She has had no fevers or chills per there is no cough or congestion. Patient denies hematemesis or coffee-ground emesis. She did report vomiting prior to EMS arrival. The last thing she ate was a hot dog which tasted normally to her. She has had no sick contacts. The patient has not been on antibiotics lately. She has had no known coronavirus exposure. - Related Data Previous Rx's Medication Instructions Recorded Last Taken Type Dicyclomine [Bentyl] 20 mg PO QID PRN #30 tablet 12/04/21 Unknown Rx Ondansetron [Zofran ODT TAB] 8 mg PO Q8HR PRN #20 tab.rapdis 12/04/21 Unknown Rx Allergies Allergy/AdvReac Type Severity Reaction Status Date / Time diphenhydramine Allergy Rash Verified 02/09/19 10:02 [From Benadryl] metformin Allergy Rash Verified 02/09/19 10:02 ED Review of Systems ROS: Stated complaint: ABD PAIN X 24HRS Other details as noted in HPI Comment: All other systems reviewed and negative Constitutional: denies: fever Eyes: denies: vision change ENT: denies: throat pain Respiratory: denies: cough Cardiovascular: denies: chest pain Endocrine: denies: unexplained weight loss Gastrointestinal: as per HPI Genitourinary: denies: dysuria Musculoskeletal: denies: back pain Skin: rash (Chronic psoriasis) Neurological: denies: headache Hematological/Lymphatic: denies: easy bruising ED Past Medical Hx - Past Medical History Hx Diabetes: Yes (diet controlled) Additional medical history: psoriasis - Surgical History Past Surgical History?: No - Family History Family history: diabetes - Social History Smoking Status: Never Smoker Substance Use Type: None - Medications Home Medications: Home Medications Medication Instructions Recorded Confirmed Last Taken Type Dicyclomine [Bentyl] 20 mg PO QID PRN #30 tablet 12/04/21 Unknown Rx Ondansetron [Zofran ODT TAB] 8 mg PO Q8HR PRN #20 tab.rapdis 12/04/21 Unknown Rx ED Physical Exam - General Limitations: No Limitations, Other (Pulse ox noted and normal) General appearance: alert, in distress (Moderate discomfort), obese - Head Head exam: Present: atraumatic, normocephalic, normal inspection - Eye Eye exam: Present: normal appearance, PERRL, EOMI. Absent: scleral icterus - ENT ENT exam: Present: mucous membranes dry, normal external ear exam - Neck Neck exam: Present: normal inspection. Absent: meningismus - Respiratory Respiratory exam: Present: normal lung sounds bilaterally. Absent: respiratory distress - Cardiovascular Cardiovascular Exam: Present: regular rate, normal rhythm - GI/Abdominal GI/Abdominal exam: Present: soft, distended, tenderness (Diffuse), other (Tympany is noted). Absent: guarding, rebound - Extremities Exam Extremities exam: Present: normal capillary refill, pedal edema (2+ bilateral). Absent: calf tenderness - Back Exam Back exam: Absent: CVA tenderness (R), CVA tenderness (L) - Neurological Exam Neurological exam: Present: alert, oriented X3, CN II-XII intact, normal gait. Absent: motor sensory deficit - Psychiatric Psychiatric exam: Present: normal affect, normal mood - Skin Skin exam: Present: warm, dry ED Course Vital Signs 12/04/21 12/04/21 12/04/21 09:10 09:12 09:16 Temperature 98.4 F Pulse Rate 72 76 75 Respiratory 23 15 24 Rate Blood Pressure 168/65 Blood Pressure 168/65 [Left] O2 Sat by Pulse 100 99 100 Oximetry 12/04/21 12/04/21 12/04/21 09:30 09:40 09:45 Temperature Pulse Rate 70 69 Respiratory 22 22 21 Rate Blood Pressure 168/65 Blood Pressure [Left] O2 Sat by Pulse 100 100 Oximetry 12/04/21 12/04/21 12/04/21 10:01 10:15 10:31 Temperature Pulse Rate 67 66 Respiratory 17 20 Rate Blood Pressure 135/53 135/53 149/61 Blood Pressure [Left] O2 Sat by Pulse 95 100 100 Oximetry 12/04/21 12/04/21 10:45 11:01 Temperature Pulse Rate 65 64 Respiratory 18 16 Rate Blood Pressure 149/61 176/72 Blood Pressure [Left] O2 Sat by Pulse 100 100 Oximetry - Reevaluation(s) Reevaluation #1: 12/04/21 09:10 EMS was met upon arrival. IV and labs were ordered. CT was ordered. Old records noted. Reevaluation #2: 12/04/21 12:16 CT was noted. Patient was discharged. ED Medical Decision Making - Lab Data Result diagrams: 12/04/21 09:56 12/04/21 09:56 - Radiology Data Radiology results: report reviewed - Medical Decision Making Patient presents with abdominal pain of unclear theology. There was initial thought that this could be bowel obstruction due to distention and tympany. Based on CT, there is no evidence of bowel obstruction. She does have a ventral hernia but this does not appear to be strangulated or incarcerated. There was no pain out of proportion to exam suggestive of ischemic bowel. Patient does not have evidence of appendicitis. There is no evidence of acute hepatitis or pancreatitis. Patient was treated symptomatically and referred for outpatient evaluation and follow-up. We have discussed the hernia and surgical follow-up. Critical Care Time: No Critical care attestation.: If time is entered above; I have spent that time in minutes in the direct care of this critically ill patient, excluding procedure time. ED Disposition Clinical Impression: Generalized abdominal pain Ventral hernia Qualifiers: Obstruction and gangrene presence: without obstruction or gangrene Qualified Code(s): K43.9 - Ventral hernia without obstruction or gangrene Disposition: 01 HOME / SELF CARE / HOMELESS Is pt being admited?: No Condition: Stable Instructions: Abdominal Pain (ED), Abdominal Pain, Adult, [id number], Pain Without a Known Cause, Hernia, Adult Additional Instructions: Have a bland diet. Drink plenty of water. Return for problems. Follow-up with your family doctor in the referral doctors for recheck. Prescriptions: Dicyclomine [Bentyl] 20 mg PO QID PRN #30 tablet PRN Reason: abd pain Ondansetron [Zofran ODT TAB] 8 mg PO Q8HR PRN #20 tab.rapdis PRN Reason: Nausea Referrals: PRIMARY CAREMD [Primary Care Provider] - 3-5 Days CHRISSIE AVERY MD [Staff Physician] - 3-5 Days JOSE ANGEL PAREKH MD [Staff Physician] - 3-5 Days
[2021-12-04 10:30] LABS: Basophils # (Auto) 0.1 K/mm3 (0.0-0.1); Basophils % (Auto) 0.8 % (0.0-1.8); Eosinophils % (Auto) 0.2 % (0.0-4.3); Hematocrit 34.4 % (30.3-42.9); Hemoglobin 11.5 gm/dl (10.1-14.3); Lymphocytes # (Auto) 0.7 K/mm3 (1.2-5.4); Lymphocytes % (Auto) 9.7 % (13.4-35.0); Mean Corpuscular HGB Conc 34 % (30-34); Mean Corpuscular Volume 81 fl (79-97); Monocytes # (Auto) 0.3 K/mm3 (0.0-0.8); Monocytes % (Auto) 4.3 % (0.0-7.3); Platelet Count 260 K/mm3 (140-440); Red Blood Count 4.24 M/mm3 (3.65-5.03); Red Cell Distribution Width 14.2 % (13.2-15.2)
[2021-12-04 10:57] LABS: Alanine Aminotransferase 10 units/L (7-56); Albumin 3.9 g/dL (3.9-5); BUN/Creatinine Ratio 6; Blood Urea Nitrogen 5 mg/dL (7-17); Hemolysis Index 45
[2021-12-04 11:58] VITALS: BP 176/72
--- NOTE | 2021-12-04 12:05 | Cat Scan Report ---
CT ABDOMEN AND PELVIS WITHOUT CONTRAST, 12/04/2021 INDICATION: Abdominal pain TECHNICAL: Multiple axial CT images of the abdomen and pelvis were acquired without intravenous contr ast. Sagittal and coronal reformats were obtained. All CTs at this facility utilize dose reduction techniques including automated exposure control, iterative reconstruction and weight based dosing whe n appropriate to reduce patient radiation dose to as low as reasonable achievable. COMPARISON: CT of the abdomen and pelvis, 02/16/2020 FINDINGS: LUNG BASES: Limited imaging of the bilateral lung bases demonstrates no focal abnormality. ABDOMEN: The liver, gallbladder, stomach, spleen, pancreas, bilateral adrenal glands and bilateral ki dneys show no evidence of acute abnormality. The abdominal aorta is normal in caliber with minimal sc attered atherosclerotic calcifications. There is a large ventral containing a portion of the transverse colon and mesentery. The neck of the hernia is at the level of the umbilicus. There is no evidence of associated inflammatory change. Ther e is no evidence of bowel obstruction. The appendix is visualized and appears normal. PELVIS: There is minimal diverticulosis of the sigmoid colon without evidence for diverticulitis. The uterus and urinary bladder appear within normal limits. BONES AND SOFT TISSUES: Evaluation of bony structures demonstrates no acute bony abnormality. Evaluat ion of soft tissue structures demonstrates multiple multiple enlarged bilateral inguinal lymph nodes. As a reference, the largest lymph node is noted on the left measuring 3.7 cm in length by 2.2 cm in short axis. IMPRESSION: 1. Ventral hernia as described above containing a portion of transverse colon. There is no associated inflammatory change or evidence for bowel obstruction. 2. Multiple enlarged bilateral inguinal lymph nodes of indeterminant etiology. Signer Name: Nicolle Marrero MD Signed: 12/04/2021 12:01 PM Workstation Name: [id number]
[2021-12-04] MEDS ORDERED: DICYCLOMINE 20 MG/2 ML INJ IM ONE (12:24)
== END 2021-12-04 14:08 | disposition home or self-care (01) ==
LOC: ED 08:55
DX: K43.9 Ventral hernia without obstruction or gangrene (principal); E11.9 Type 2 diabetes mellitus without complications; Z88.8 Allergy status to other drugs, medicaments and biological substances; Z79.899 Other long term (current) drug therapy
CPT/HCPCS: 36415; 74176; 80053; 83690; 85025; 96361; 96372; 96374; 96375; 99284; J0500; J2405; J3010; J7030; Q0162

== ENCOUNTER 2021-12-04 14:10 | Emergency (ER) | payer SELFPAY ==
[2021-12-04 14:33] VITALS: BP 182/84
[2021-12-04] MEDS ORDERED: HYDROmorphone 1 MG/1 ML INJ IM ONE (14:59)
--- NOTE | 2021-12-04 15:01 | Emergency Department Report ---
ED General Adult HPI - General Chief complaint: Abdominal Pain Stated complaint: Abdominal pain Time Seen by Provider: 12/04/21 14:53 Source: patient, RN notes reviewed, old records reviewed Mode of arrival: Ambulatory Limitations: No Limitations - History of Present Illness Initial comments: The patient is a 56-year-old female with a history of chronic ventral wall abdominal hernia, who was seen by my colleague earlier on this evening/morning, had a CT scan of the abdomen pelvis which was negative for acute/emergent findings, and we demonstrated the presence of a chronic ventral abdominal wall hernia. The patient presents to the ER today with a complaint of persistent abdominal wall pain and hernia. This hernia has been present at least since 2019. The patient denies additional injuries and complaints. Patient was medicated with hydromorphone, 0.5 mg, and I was able to manually reduce this patient's ventral wall hernia. She endorsed immediate relief of symptoms, and subsequently denies all additional pain and symptoms. -: year(s) Location: abdomen Consistency: constant Improves with: other (Gentle manual reduction of hernia) Worsens with: other (Palpation) Associated Symptoms: denies other symptoms - Related Data Previous Rx's Medication Instructions Recorded Last Taken Type Dicyclomine [Bentyl] 20 mg PO QID PRN #30 tablet 12/04/21 Unknown Rx Ondansetron [Zofran ODT TAB] 8 mg PO Q8HR PRN #20 tab.rapdis 12/04/21 Unknown Rx Allergies Allergy/AdvReac Type Severity Reaction Status Date / Time diphenhydramine Allergy Rash Verified 02/09/19 10:02 [From Benadryl] metformin Allergy Rash Verified 02/09/19 10:02 ED Review of Systems ROS: Stated complaint: FEEL FAINT/DIZZY Other details as noted in HPI Comment: All other systems reviewed and negative Gastrointestinal: abdominal pain Skin: rash (Chronic skin rash and lesions) ED Past Medical Hx - Past Medical History Hx Diabetes: Yes (diet controlled) Additional medical history: psoriasis - Social History Smoking Status: Never Smoker Substance Use Type: None - Medications Home Medications: Home Medications Medication Instructions Recorded Confirmed Last Taken Type Dicyclomine [Bentyl] 20 mg PO QID PRN #30 tablet 12/04/21 Unknown Rx Ondansetron [Zofran ODT TAB] 8 mg PO Q8HR PRN #20 tab.rapdis 12/04/21 Unknown Rx ED Physical Exam - General Limitations: No Limitations General appearance: alert, obese - Head Head exam: Present: atraumatic, normocephalic - Eye Eye exam: Present: normal appearance, EOMI. Absent: nystagmus - ENT ENT exam: Present: normal exam, normal orophraynx, mucous membranes moist, normal external ear exam - Neck Neck exam: Present: normal inspection, full ROM. Absent: tenderness, meningismus - Respiratory Respiratory exam: Present: normal lung sounds bilaterally. Absent: respiratory distress, wheezes, rales, rhonchi, stridor, decreased breath sounds - Cardiovascular Cardiovascular Exam: Present: regular rate, normal rhythm, normal heart sounds. Absent: bradycardia, tachycardia, irregular rhythm, systolic murmur, diastolic murmur, rubs, gallop - GI/Abdominal GI/Abdominal exam: Present: soft, tenderness, hernia (There is a reducible midline ventral/umbilical hernia noted). Absent: distended, guarding, rebound, rigid, pulsatile mass - Extremities Exam Extremities exam: Present: full ROM, pedal edema (1+ edema in the bilateral lower extremities), other (2+ pulses noted in the bilateral upper and lower extremities. There is no palpable cord. negative Homans sign. Muscular compartments are soft. The pelvis is stable.). Absent: normal inspection (Chronic venous stasis changes noted in the bilateral lower extremity), calf tenderness - Back Exam Back exam: Present: normal inspection. Absent: tenderness, CVA tenderness (R), CVA tenderness (L), paraspinal tenderness, vertebral tenderness - Neurological Exam Neurological exam: Present: alert, oriented X3, normal gait, other (No facial droop. Tongue midline. Extraocular movements intact bilaterally. Facial sensation intact to light touch in V1, V2, V3 distribution bilaterally. 5 and a 5 strength in 4 extremities. Sensation intact to light touch in 4 extremities.). Absent: motor sensory deficit - Psychiatric Psychiatric exam: Present: normal affect, normal mood - Skin Skin exam: Present: warm, dry, intact, normal color. Absent: rash ED Course Vital Signs 12/04/21 14:26 Temperature 98.5 F Pulse Rate 65 Respiratory 20 Rate Blood Pressure 182/84 O2 Sat by Pulse 100 Oximetry - Procedure Description Procedures done: Verbal consent obtained from the patient for manual hernia reduction. Patient medicated with hydromorphone, 0.5 mg, and approximately 20 minutes after receiving hydromorphone, applied direct posteriorly directed manual pressure on the midline ventral hernia through the umbilicus, resulting in successful reduction of umbilical hernia. The patient tolerated this procedure well, without complication. She endorsed immediate improvement in symptoms. ED Medical Decision Making - Lab Data Vital Signs 12/04/21 14:26 Temperature 98.5 F Pulse Rate 65 Respiratory 20 Rate Blood Pressure 182/84 O2 Sat by Pulse 100 Oximetry - Medical Decision Making CT of the abdomen and pelvis without contrast INDICATION: Mid abdominal pain starting today COMPARISON: None FINDINGS: Lung bases are clear. The liver, spleen, pancreas, adrenal glands and kidneys show no abnormalities. No definite gallbladder or biliary tree abnormality. No fluid or adenopathy in the upper abdomen. No gastric wall thickening. Slight induration of the central mesentery and a few small lymph nodes in this area are not considered significant. CT of the pelvis shows a normal appendix. There is relatively large fat-containing paraumbilical hernia without induration. No uterine or adnexal masses. No pelvic or inguinal adenopathy. No pelvic fluid is seen. No ureteral stones are seen. No stone fragments seen in the bladder. No significant skeletal lesion. There is slight sigmoid diverticulosis without diverticulitis. IMPRESSION: Incidental findings as described but no acute process identified. Automated exposure control was utilized to diminish radiation dose. Signer Name: Viraj Butler MD Signed: 02/16/2020 11:06 AM Workstation Name: [id number] CT ABDOMEN AND PELVIS WITHOUT CONTRAST, 12/04/2021 INDICATION: Abdominal pain TECHNICAL: Multiple axial CT images of the abdomen and pelvis were acquired without intravenous contrast. Sagittal and coronal reformats were obtained. All CTs at this facility utilize dose reduction techniques including automated exposure control, iterative reconstruction and weight based dosing when appropriate to reduce patient radiation dose to as low as reasonable achievable. COMPARISON: CT of the abdomen and pelvis, 02/16/2020 FINDINGS: LUNG BASES: Limited imaging of the bilateral lung bases demonstrates no focal abnormality. ABDOMEN: The liver, gallbladder, stomach, spleen, pancreas, bilateral adrenal glands and bilateral kidneys show no evidence of acute abnormality. The abdominal aorta is normal in caliber with minimal scattered atherosclerotic calcifications. There is a large ventral containing a portion of the transverse colon and mesentery. The neck of the hernia is at the level of the umbilicus. There is no evidence of associated inflammatory change. There is no evidence of bowel obstruction. The appendix is visualized and appears normal. PELVIS: There is minimal diverticulosis of the sigmoid colon without evidence for diverticulitis. The uterus and urinary bladder appear within normal limits. BONES AND SOFT TISSUES: Evaluation of bony structures demonstrates no acute bony abnormality. Evaluation of soft tissue structures demonstrates multiple multiple enlarged bilateral inguinal lymph nodes. As a reference, the largest lymph node is noted on the left measuring 3.7 cm in length by 2.2 cm in short axis. IMPRESSION: 1. Ventral hernia as described above containing a portion of transverse colon. There is no associated inflammatory change or evidence for bowel obstruction. 2. Multiple enlarged bilateral inguinal lymph nodes of indeterminant etiology. Signer Name: Nicolle Marrero MD Signed: 12/04/2021 11:01 AM Workstation Name: [id number] Differential diagnosis, including but not limited to: Ventral umbilical hernia Assessment and plan: 56-year-old female, who is afebrile, with reassuring vital signs with the exception of chronically elevated blood pressure, who presents to the ER today with complaint of persistent hernia pain. She denies irritative and obstructive urinary symptoms, the possibility of STI, and additional symptoms or complaints. She had a CT scan of her abdomen pelvis earlier on today which I have reviewed and appreciated. I was able to manually reduce this patient is ventral umbilical hernia without significant difficulty or complication. Patient endorsed immediate improvement in symptoms. We discussed weight loss, abdominal wall binder, and outpatient follow-up. Please reference the [employer] clinical policy on chronically asymptomatic blood pressure. Patient is suitable to to be discharged to follow-up as an outpatient with general surgery for elective repair Critical care attestation.: If time is entered above; I have spent that time in minutes in the direct care of this critically ill patient, excluding procedure time. ED Disposition Clinical Impression: Ventral hernia Disposition: HOME / SELF CARE / HOMELESS Is pt being admited?: No Does the pt Need Aspirin: No Condition: Good Instructions: Abdominal Pain (ED), Hernia, Adult Additional Instructions: Recommend that the patient purchase [id number] abdominal wall binder, to assist with retention of chronic ventral hernia, patient may also consider purchasing [id number] clothing such as under [place] or spanx, which may assist in keeping the ventral wall hernia contained. Recommend weight loss, and that patient consume plenty of fiber, vegetables, and lean protein, and avoid coughing, straining, or extreme effort with defecation. Patient may take [id number] ibuprofen, alternating with [id number] acetaminophen as needed for physical pain. We recommend follow-up with a general surgeon, such as Dr. Andersen, within the next month, for outpatient follow-up for chronic ventral hernia, for evaluation for elective hernia repair. Patient is also found to have elevated blood pressure today, and should follow-up with an outpatient primary care doctor within the next month for chronically elevated blood pressure. Please continue current outpatient medications otherwise, please return to the emergency room right away with new pain, worsened pain, migration of pain, projectile vomiting, change in mental status, confusion, inability tolerate liquid feeds, new, worsened or different symptoms not present on the initial emergency room evaluation Referrals: JOSE ANGEL ANDERSEN MD [Staff Physician] - 3-5 Days [facility] [Provider Group] - 3-5 Days
== END 2021-12-04 17:57 ==
LOC: ED 14:10
DX: K43.9 Ventral hernia without obstruction or gangrene (principal); E11.9 Type 2 diabetes mellitus without complications; Z79.84 Long term (current) use of oral hypoglycemic drugs; Z88.8 Allergy status to other drugs, medicaments and biological substances; Z79.899 Other long term (current) drug therapy
CPT/HCPCS: 96372; 99282; J1170; 90471